=== PATIENT | female | born 1955 | race Caucasian/White ===

== ENCOUNTER → 2017-10-27 13:50 | Outpatient (CLI) | payer OTHER, SELFPAY ==
[2017-10-27 14:42] LABS: Absolute Lymphocyte Count 1.85 X10^3/ul (0.83-4.51); Absolute Neutrophil Count 2.5 X10^3/uL (2.0-7.7); Basophil# 0.04 X10^3/uL; Basophil% 0.8 % (0-1); Eosinophil# 0.07 X10^3/uL; Eosinophils% 1.5 % (0-5); Hemoglobin 12.8 g/dl (12.0-15.0); Lymphocyte # 1.85 X10^3/ul (4.0); Lymphocyte % 38.7 % (19-41); Mean Corp Hgb Conc 32.8 g/gl (32-36); Mean Corpuscular Hgb 30.5 pg (27.0-32.0); Mean Corpuscular Volume 93.1 fL (81-99); Mean Platelet Vol. 9.8 fl (6.2-12.0); Monocyte# 0.28 X10^3/uL; Monocyte% 5.9 % (0-10); Neutrophil # 2.54 X10^3/uL (2.7-7.7); Neutrophil % 53.1 % (47-70); Platelet Count 226 K/mm3 (150-450); RBC Distribution Width CV 13.3 % (11.6-14.6); RBC Distribution Width SD 45.3 fl (35.1-43.9); Red Blood Count 4.19 M/mm3 (4.2-5.4); White Blood Count 4.8 K/mm3 (4.4-11.0)
[2017-10-27 14:43] LABS: POSITIVE COUNT NO; POSITIVE DIFFERENTIAL NO; POSITIVE MORPHOLOGY NO
[2017-10-27 15:02] LABS: Anion Gap 9 (5-15); BUN 20 mg/dL (7-18); BUN/Creat Ratio 22.4 RATIO (10-20); Calcium,Total 8.7 mg/dL (8.5-10.1); Chloride 105 mmol/L (98-107); Creatinine, Serum 0.89 mg/dL (0.55-1.02); EST Glomerular Filtration Rate 68 mL/min (>60); Est Glom Filt Rate - Afr Amer 83 mL/min (>60); Glucose 104 mg/dL (74-106); Potassium 3.8 mmol/L (3.5-5.1); Sodium Level 140 mmol/L (136-145)
== END ==
PROVIDERS: Family Provider Family Medicine; PCP Family Medicine; Visit Provider Physician Assistant Surgical
DX: Z01.818 Encounter for other preprocedural examination (principal)
CPT/HCPCS: 36415; 80048; 85025

== ENCOUNTER → 2020-02-27 | Outpatient (CLI) | payer OTHER, SELFPAY ==
--- NOTE | 2020-02-27 11:53 | BI_ITS ---
MAMMOGRAPHY - BILATERAL SCREENING 3-D TOMOSYNTHESIS REASON FOR EXAM: Female, 64 years old. Routine screening PERTINENT HISTORY: NO FM HX -- COMPS FROM [facility] 2017 and amp; 2015. TECHNIQUE: 2-D mammograms and 3-D Tomosynthesis of the breast (s) were performed. CAD was performed. COMPARISON: 2017 FINDINGS: The breast composition is composed of scattered fibroglandular density. Scattered benign calcifications are seen. No dense spiculated masses or suspicious microcalcifications are identified. No architectural distortion is identified. There is no skin thickening or retraction. There has been no significant change since the prior study. BI/SCREEN MAMM (CAD) W/ROBLES BILAT IMPRESSION: No mammographic signs of malignancy. Routine yearly mammograms recommended. ASSESSMENT CATEGORY: BIRADS Category 1: Negative. A letter regarding these results will be sent to the patient by the facility within 30 days. FOLLOW UP RECOMMENDATION: Yearly follow up mammogram recommended. (A) Approximately 10% of breast cancers are not detected by mammography. A normal mammogram should not delay biopsy of a clinically suspicious abnormality. Electronically Signed: Oni Heredia MD at 13:31 EDT , Service support ,
== END | disposition home or self-care (01) ==
LOC: OPBI 11:50
PROVIDERS: PCP Family Medicine; Referring Provider Family Medicine; Visit Provider Family Medicine
DX: Z12.31 Encounter for screening mammogram for malignant neoplasm of breast (principal)
CPT/HCPCS: 77063; 77067

== ENCOUNTER → 2020-05-18 14:30 | Outpatient (CLI) | payer OTHER, SELFPAY ==
[2020-05-17 13:02] LABS: Absolute Lymphocyte Count 2.56 X10^3/uL (0.83-4.51); Absolute Neutrophil Count 3.2 X10^3/uL (2.0-7.7); Basophil# 0.05 X10^3/uL; Basophil% 0.8 % (0-1); Eosinophil# 0.05 X10^3/uL; Eosinophils% 0.8 % (0-5); Hematocrit 40.6 % (37-47); Hemoglobin 13.2 g/dL (12.0-15.0); Lymphocyte # 2.56 X10^3/ul (4.0); Lymphocyte % 40.5 % (19-41); Mean Corp Hgb Conc 32.5 g/dL (32-36); Mean Corpuscular Hgb 30.3 pg (27.0-32.0); Mean Corpuscular Volume 93.3 fL (81-99); Mean Platelet Vol. 10.2 fl (6.2-12.0); Monocyte# 0.46 X10^3/uL; Monocyte% 7.3 % (0-10); NRBC Flagged by Analyzer 0 % (0-5); Neutrophil # 3.19 X10^3/uL (2.7-7.7); Neutrophil % 50.4 % (47-70); Platelet Count 281 K/mm3 (150-450); RBC Distribution Width CV 13.2 % (11.6-14.6); RBC Distribution Width SD 45.2 fl (35.1-43.9); Red Blood Count 4.35 M/mm3 (4.2-5.4); White Blood Count 6.3 K/mm3 (4.4-11.0)
[2020-05-17 13:29] LABS: Anion Gap 7 (5-15); BUN 17 mg/dL (7-18); BUN/Creat Ratio 21.4 RATIO (10-20); Chloride 104 mmol/L (98-107); Creatinine, Serum 0.79 mg/dL (0.55-1.02); EST Glomerular Filtration Rate 78 mL/min (>60); Est Glom Filt Rate - Afr Amer 94 mL/min (>60); Glucose 88 mg/dL (74-106); Potassium 4.1 mmol/L (3.5-5.1); Sodium Level 137 mmol/L (136-145)
== END ==
PROVIDERS: PCP Family Medicine; Referring Provider Physician Assistant Surgical; Visit Provider Physician Assistant Surgical
DX: Z01.810 Encounter for preprocedural cardiovascular examination (principal); Z01.812 Encounter for preprocedural laboratory examination; Z20.828 Contact with and (suspected) exposure to other viral communicable diseases
CPT/HCPCS: 36415; 80048; 85025; 87635; 93005; C9803; U0003

== ENCOUNTER → 2021-06-14 14:32 | Outpatient (CLI) | payer OTHER, SELFPAY ==
--- NOTE | 2021-06-14 14:41 | BI_ITS ---
MAMMOGRAPHY - BILATERAL SCREENING REASON FOR EXAM: Female, 65 years old. Routine annual screening examination. PERTINENT HISTORY: Non-contributory. TECHNIQUE: Digital bilateral breast robles (3D mammographic acquisition) in the CC and MLO projections. 2-D mediolateral oblique (MLO) and craniocaudad (CC) views of both breasts were obtained. CAD: Full Field Digital Mammography with Computer Added Detection was performed. COMPARISON: Comparison is made with prior study done 02/27/2020. FINDINGS: Breast Composition: There are scattered areas of fibroglandular density. There are no dominant masses or suspicious calcifications. No other significant abnormalities are identified. There has been no significant change since the prior study. BI/SCRN MAMM (CAD)W/ROBLES BILAT IMPRESSION: Stable bilateral screening mammogram. Yearly follow-up mammogram recommended. (A) ASSESSMENT CATEGORY: BIRADS Category 1: Negative. A letter regarding these results will be sent to the patient by the facility within 30 days. Approximately 10% of breast cancers are not detected by mammography. A normal mammogram should not delay biopsy of a clinically suspicious abnormality. [id number] Electronically Signed: Logan Goodrich MD at 8:42 EST , Service support ,
== END ==
PROVIDERS: PCP Family Medicine; Referring Provider Family Medicine; Visit Provider Family Medicine
DX: Z12.31 Encounter for screening mammogram for malignant neoplasm of breast (principal)
CPT/HCPCS: 77063; 77067

== ENCOUNTER → 2021-07-10 12:33 | Outpatient (CLI) | payer OTHER, SELFPAY ==
--- NOTE | 2021-07-10 12:40 | EKG12_ITS ---
Test Reason : PREOP Blood Pressure : / mmHG Vent. Rate : 076 BPM Atrial Rate : 076 BPM P-R Int : 144 ms QRS Dur : 124 ms QT Int : 408 ms P-R-T Axes : 056 040 088 degrees QTc Int : 459 ms Normal sinus rhythm Left bundle branch block Abnormal ECG Confirmed by MAIA GUTHRIE, ADALID ([id number]), state editor TRUDI OWENS ([id number]) on 07/11/2021 9:01:37 AM Referred By: Shay Olivares Confirmed By:ADALID CARVALHO MD
--- NOTE | 2021-07-10 12:51 | CT_ITS ---
STUDY: CT Lower Extremity W/O Contrast Injection 07/10/2021 2:27 PM REASON FOR EXAM: Female, 65 years old. POST TRAUMATIC OSTEOARTHRITIS Individualized dose optimization techniques were used for this CT. TECHNIQUE: POST TRAUMATIC OSTEOARTHRITIS TAI protocol COMPARISON: No priors for comparison. FINDINGS: A rony was placed along the lateral aspect of the patient''s lower extremity. CT scans were obtained over the hip, knee, and ankle, separately. IMPRESSION: The images will be utilized by the surgical prosthesis investment associate for measurement and planning purposes.. Electronically Signed: John Bergman MD at 14:28 EST , Service support , CT/Extremity Lower without Contra
== END ==
PROVIDERS: PCP Family Medicine; Referring Provider Orthopaedic Surgery; Visit Provider Orthopaedic Surgery
DX: Z01.810 Encounter for preprocedural cardiovascular examination (principal); M17.32 Unilateral post-traumatic osteoarthritis, left knee
CPT/HCPCS: 73700; 93005

== ENCOUNTER 2021-07-19 11:50 | Outpatient (CLI) | payer OTHER, SELFPAY | END 2021-07-19 23:59 | disposition short-term general hospital (02) | PROVIDERS: PCP Family Medicine; Referring Provider Physician Assistant; Visit Provider Physician Assistant | DX: Z11.59 Encounter for screening for other viral diseases (principal) | CPT/HCPCS: 87635; C9803; U0003; U0005 ==

== ENCOUNTER 2021-07-24 15:44 | Outpatient (CLI) | payer OTHER, SELFPAY ==
--- NOTE | 2021-07-24 08:30 | KNEE_PTH ---
PATIENT: MILAN CANO LOC: [facility] U#:[id number] AGE/SX: 65/F ROOM: RE07/24/[address]: Dr. Shay Olivares DO : 1955 BED: DIS: 07/24/2021 SPEC #: [id number] RECD: 07/24/21 15:09 STATUS: KAZ REQ #: [id number] KEHINDE: 07/24/21 08:[address]: Shay Olivares DEPT: SURGICAL PATHOLOGY RECD BY: Jacquie Perea ENTERED: 07/25/21 07:28 SP TYPE: TOTAL KNEE OTHR DR: Dr. Nathan Naranjo MD [facility] Tissues: Knee, NOS Procedures: Decalcification bone/plaque Surgery Specimen Level IV HEADER OPERATION: Robotic assisted left total knee arthroplasty PRE-OP DIAGNOSIS: Posttraumatic osteoarthritis left knee TISSUE SUBMITTED: Bone and soft tissue left knee MICROSCOPIC DIAGNOSIS Bone and soft tissue, left knee, total knee replacement/resection: Pieces of bone with degenerative osteoarthritic changes. Fibroadipose tissue, fibroconnective tissue and reactive synovial tissue. ELINOR:nichole 07/31/2021 MICROSCOPIC DESCRIPTION Slides are reviewed. GROSS DESCRIPTION Received is one container designated bone and soft tissue left knee. The specimen consists of multiple fragments of mathur-yellow bone measuring in aggregate 13.5 x 9 x 2 cm. Also in the specimen container are multiple fragments of yellow-white soft tissue measuring in aggregate 9 x 8.5 x 2 cm. A number of bony fragments contain articular surfaces consistent with tibial plateau and femoral condyle and displaying prominent osteophyte formation, eburnation, and bone erosion. Precision Jig Grinder sections are submitted in two cassettes as follows: 1 - soft tissue, 2 - bone after decalcification. / AM:nichole 07/25/2021 :5 [facility]: [id number], [id number]
== END 2021-07-24 23:59 | disposition short-term general hospital (02) ==
LOC: LABSPEC 15:45
PROVIDERS: PCP Family Medicine; Referring Provider Orthopaedic Surgery; Visit Provider Orthopaedic Surgery
DX: M17.32 Unilateral post-traumatic osteoarthritis, left knee (principal)
CPT/HCPCS: 88305; 88311

== ENCOUNTER → 2023-02-23 | Outpatient (CLI) | payer BC, MEDICARE, SELFPAY ==
--- NOTE | 2023-02-23 08:07 | BI_ITS ---
MAMMOGRAPHY - BILATERAL SCREENING REASON FOR EXAM: Female, 67 years old. Routine annual screening examination. PERTINENT HISTORY: Non-contributory. TECHNIQUE: Digital bilateral breast robles (3D mammographic acquisition) in the CC and MLO projections. 2-D mediolateral oblique (MLO) and craniocaudad (CC) views of both breasts were obtained. CAD: Full Field Digital Mammography with Computer Added Detection was performed. COMPARISON: Comparison is made with prior study dated June 14, 2021 and February 27, 2020. FINDINGS: Breast Composition: There are scattered areas of fibroglandular density. There are no dominant masses or suspicious calcifications. No other significant abnormalities are identified. There has been no significant change since the prior study. BI/SCRN MAMM (CAD)W/ROBLES BILAT IMPRESSION: Stable bilateral screening mammogram. Yearly follow-up mammogram recommended. (A) ASSESSMENT CATEGORY: BIRADS Category 1: Negative. A letter regarding these results will be sent to the patient by the facility within 30 days. Approximately 10% of breast cancers are not detected by mammography. A normal mammogram should not delay biopsy of a clinically suspicious abnormality. [id number] Electronically Signed: Logan Goodrich MD at 10:01 EDT ,
== END | disposition home or self-care (01) ==
PROVIDERS: PCP Family Medicine; Referring Provider Family Medicine; Visit Provider Family Medicine
DX: Z12.31 Encounter for screening mammogram for malignant neoplasm of breast (principal)
CPT/HCPCS: 77063; 77067

== ENCOUNTER → 2024-04-05 | Outpatient (CLI) | payer MEDICARE, SELFPAY ==
--- NOTE | 2024-04-05 10:47 | BI_ITS ---
MAMMOGRAPHY - BILATERAL SCREENING REASON FOR EXAM: Female, 68 years old. Routine annual screening examination. PERTINENT HISTORY: Non-contributory. TECHNIQUE: Digital bilateral breast robles (3D mammographic acquisition) in the CC and MLO projections. 2-D mediolateral oblique (MLO) and craniocaudad (CC) views of both breasts were obtained. CAD: Full Field Digital Mammography with Computer Added Detection was performed. COMPARISON: Comparison is made with prior study dated February 23, 2023 and June 14, 2021. FINDINGS: Breast Composition: There are scattered areas of fibroglandular density. There are no dominant masses or suspicious calcifications. No other significant abnormalities are identified. There has been no significant change since the prior study. BI/SCRN MAMM (CAD)W/ROBLES BILAT IMPRESSION: Stable bilateral screening mammogram. Yearly follow-up mammogram recommended. (A) ASSESSMENT CATEGORY: BIRADS Category 1: Negative. A letter regarding these results will be sent to the patient by the facility within 30 days. Approximately 10% of breast cancers are not detected by mammography. A normal mammogram should not delay biopsy of a clinically suspicious abnormality. [id number] Electronically Signed: Logan Goodrich MD at 11:30 EDT ,
== END | disposition home or self-care (01) ==
LOC: OPBI 10:45
PROVIDERS: PCP Family Medicine; Referring Provider Family Medicine; Visit Provider Family Medicine
DX: Z12.31 Encounter for screening mammogram for malignant neoplasm of breast (principal)
CPT/HCPCS: 77063; 77067

== ENCOUNTER 2025-03-02 09:36 | Outpatient (CLI) | payer MEDICARE, SELFPAY | END 2025-03-02 23:59 | disposition home or self-care (01) | LOC: LABSPEC 09:36 | PROVIDERS: PCP Family Medicine; Referring Provider Surgery; Visit Provider Surgery | DX: L82.1 Other seborrheic keratosis (principal); D22.61 Melanocytic nevi of right upper limb, including shoulder | CPT/HCPCS: 88305; 88342 ==

== ENCOUNTER 2025-04-03 02:12 | Emergency (ER) | payer MEDICARE, SELFPAY ==
[2025-04-03 02:13] VITALS: BP 165/83; PULSE 96; RESP 18; TEMP 36.6; O2SAT 100; BMI 25.5
--- NOTE | 2025-04-03 02:37 | EKG12_ITS ---
Test Reason : CP Blood Pressure : */* mmHG Vent. Rate : 96 BPM Atrial Rate : 96 BPM P-R Int : 142 ms QRS Dur : 120 ms QT Int : 360 ms P-R-T Axes : 83 80 251 degrees QTcB Int : 454 ms Normal sinus rhythm Incomplete left bundle branch block ST & T wave abnormality, consider inferolateral ischemia Abnormal ECG Confirmed by MAIA GUTHRIE, ADALID ([id number]), business editor DUNIA CUNHA ([id number]) on 04/04/2025 7:25:51 AM Referred By: MARKUS Confirmed By: ADALID CARVALHO MD
--- NOTE | 2025-04-03 02:38 | EDS_ITS ---
HPI History of Present Illness Chief Complaint: Chest Pain Informant: patient Onset/Context/Timing Onset: Today (Approximately 45 minutes prior to arrival) Activity at onset: sudden Timing: Continuous Quality: Positive for Aching Location: Left Parasternal Worsened By: Breathing Relieved By: Nothing Associated Symptoms: Positive for Dyspnea and Cough; Negative for Nausea, Vomiting, Diaphoresis, Fever, Lightheadedness, Acid Reflux or Palpitations Narrative Narrative: Patient presents with chest pain that began approximately 45 minutes prior to arrival. Patient states it woke her up out of her sleep. Patient states it is over the left parasternal area. Patient describes it as aching. Patient states it is worse when she takes deep breath. Patient states nothing seems to help with it. Patient admits to some shortness of breath and cough. Patient denies any fevers or chills. Patient denies any nausea or vomiting. Patient denies any palpitations. Patient denies any lightheadedness or dizziness. CVD Risk Factors: Negative for Hypertension, Diabetes, Hypercholesterolemia, Family History 1' </=55 or Smoking PE Risk Factors: Negative for Recent Travel/Surgery, Recent Immobilization, Prior DVT or PE, Cancer or OCP + Smoking + >/=35 PFSH PFSH Medical History no medical history no medical history Home Medications ?Medication ?Instructions ?Recorded ?Last Taken ?Type No Known/Unobtainable [No Known 7 Unknown History Home Medications] Allergy/AdvReac Type Severity Reaction Status Date / Time No Known Allergies Allergy Verified 04/03/25 02:13 Family History no significant family his Surgical History History of knee replacement History of hip replacement Social History Smoking Status: Never smoker ROS ROS ED Constitutional Constitutional ED: Denies chills or fever(s) Eyes Eyes: Denies blurry vision or change in vision ENT ENT ED: Denies rhinorrhea or sore throat Cardiovascular Cardiovascular: Reports as per HPI and chest pain; Denies palpitations Respiratory/Chest Respiratory/Chest: Reports cough and dyspnea Gastrointestinal Gastrointestinal: Denies nausea or vomiting Genitourinary Genitourinary ED: Denies dysuria or hematuria Musculoskeletal Musculoskeletal: Reports back pain; Denies neck pain Integumentary Denies abscess or rash Neurologic Neurologic: Denies headache(s) or weakness Allergic/Immunologic Allergic/Immunologic ED: Denies mouth swelling or urticaria EXAM Physical Exam Const Vital Signs: 04/03/25 02:13 04/03/25 02:13 04/03/25 02:49 Temperature 98 F Temperature Source Oral Pulse Rate 96 Respiratory Rate 18 Respiratory Effort Normal Blood Pressure 165/83 H Blood Pressure Mean 110 Pulse Ox 100 Oxygen Delivery Method Room Air Room Air 04/03/25 02:52 04/03/25 03:00 04/03/25 04:00 Temperature Temperature Source Pulse Rate 86 84 87 Respiratory Rate 18 16 Respiratory Effort Blood Pressure 165/83 H 113/73 143/73 H Blood Pressure Mean 86 96 Pulse Ox 97 100 Oxygen Delivery Method Room Air Room Air 04/03/25 05:00 Temperature Temperature Source Pulse Rate 74 Respiratory Rate 16 Respiratory Effort Blood Pressure 126/73 H Blood Pressure Mean 90 Pulse Ox 96 Oxygen Delivery Method Room Air Positive well nourished and well developed Constitutional Narrative: BMI is 25.6. General Appearance ED: well developed and NAD HEENT Reports moist mucous membranes Neck supple and no JVD Resp normal respiratory effort and clear to auscultation bilaterally Cardio regular rate and regular rhythm GI soft to palpation, non-tender and non-distended Extremity normal to inspection Neuro oriented x3, CN's II-XII intact bilaterally and no sensory deficits noted Sensorium / Orientation: awake and alert Motor Exam: strength 5/5 throughout Psych mental status grossly normal Heart Score History: Slightly/Non-Suspicious ECG: Nonspecific Repolarization Age: >/= 65 years Risk Factors: No Risk Factors Score: 3 MDM MDM MDM Narrative Medical decision making narrative: Differential diagnosis includes cardiac dysrhythmia, cardiac ischemia, pneumonia, bronchitis, electrolyte abnormality, gastroesophageal reflux disease, pulmonary embolism, and anxiety. EKG will be obtained to assess for cardiac dysrhythmia and cardiac ischemia. Chest x-ray will be obtained to assess for pneumonia and bronchitis. CBC will be obtained to assess for leukocytosis and anemia. Basic metabolic profile will be obtained to assess for electrolyte abnormality and renal function. D-dimer will be obtained to assess for pulmonary embolism. High-sensitivity troponin will be obtained to assess for cardiac ischemia. 2-hour repeat high-sensitivity troponin will be obtained to assess for ongoing cardiac ischemia. Lab Data Attestation: I reviewed the patient's lab results. Lab results narrative: CBC was reviewed. There is a slight leukocytosis of 11.6. The remainder is within normal limits. Basic metabolic profile was reviewed and was within normal limits. D-dimer was reviewed and was normal at 0.34. Initial high- sensitivity troponin was reviewed and was normal at 9. 2-hour repeat high- sensitivity troponin was reviewed and was normal at 10. Labs: Laboratory Results - last 24 hr 04/03/25 04/03/25 02:24 04:24 WBC 11.6 H RBC 4.52 Hgb 13.7 Hct 40.2 MCV 88.9 MCH 30.3 MCHC 34.1 RDW Std Deviation 43.2 RDW Coeff of Sade 13.2 Plt Count 266 MPV 9.8 Immature Gran % (Auto) 0.300 Neut % (Auto) 65.9 Lymph % (Auto) 24.0 [place] % (Auto) 8.4 Eos % (Auto) 0.7 Baso % (Auto) 0.7 Absolute Neuts (auto) 7.6 Absolute Lymphs (auto) 2.78 Nucleated RBC % 0 D-Dimer Quant (PE/DVT) 0.34 Sodium 136 Potassium 4.2 Chloride 99 Carbon Dioxide 24.4 Anion Gap 13 BUN 11 Creatinine 0.75 Estim Creat Clear Calc 68.36 Est GFR (MDRD) Non-Af 87 BUN/Creatinine Ratio 14.5 Glucose 115 H Calcium 9.7 Troponin T High Sens 9 Troponin T Hi Sens 2 Hr 10 Radiography Chest X-Ray - ED: 1 View, Read by ED Physician, Read by Radiologist and No Acute Disease Diagnostic Testing: Clinical Impression(s) from Imaging Studies Chest X-Ray 04/03/25 02:50 IMPRESSION: Chronic deformities of the right ribs. No evidence for acute abnormality. Reading Location: [place] [id number] Portable 1 view chest x-ray was obtained. On my independent interpretation, lung zendejas are clear. There is normal cardiac silhouette. Bony thorax is normal. There is no acute process noted. Radiologist also interpreted the x- ray and agrees. EKG Initial EKG: Attestation: I personally reviewed and interpreted this EKG as follows: Interpretation: Sinus Rhythm (96), LBBB (Incomplete) and Non-Specific ST Changes Comments: EKG was obtained. On my independent interpretation, showed a normal sinus rhythm at 96. RI interval was normal at 142 ms. QRS interval was borderline at 120 ms. QTc interval was normal at 454 ms. [place] was normal. There are nonspecific ST-T wave changes noted. Prior EKG tracings: available for review Prior: Unchanged (07/10/2021) Treatment and Re-Evaluation :: Patient was given aspirin and sublingual nitroglycerin. Patient had no further pain on reevaluation. Patient was advised of her findings. Patient has a HEART score of 3. Patient was advised that this is low risk for acute cardiac event. Patient was instructed to follow-up with her primary care physician in 5 to 7 days for reevaluation. Patient was instructed to return if worse in any way. Patient understood and was agreeable with the plan. All questions were answered. Discharge Plan Triage Chief Complaint: Chest Pain ED Provider: Mohan Guadarrama Dx/Rx/DC Orders Clinical Impression: Chest pain, Elevated blood pressure reading Instructions: ED Chest Pain, Uncertain Cause Prescriptions: No Action No Known Home Medications Primary Care Provider: Debi Alexander Referrals: Debi Alexander NP-C [Primary Care Provider, Family Practice] - 3-5 Days Nathan Naranjo MD [Non-Staff, [facility]] - 3-5 Days Print Language: Burundian Disposition Disposition: Home, Self Care
--- OUTSIDE RECORDS SUMMARY | 2025-04-03 02:43 | XMS RPT_ITS | CCD ---
Author Organization [facility] Care Team Providers Care Environmental Auditor Name Role Phone Gretel Turner MD Primary Care Provider Gretel Turner MD Primary Care Provider Catherine BENEFITS CLERK.Debi PARHAM Unavailable Arie BENEFITS CLERKFranko RODRIGUEZ Unavailable GRETEL TURNER Primary Care Unavailable DEBI ALEXANDER Attending Unavailable DEBI ALEXANDER Attending Unavailable GRETEL TURNER Primary Care Unavailable GRETEL TURNER Primary Care Unavailable DEBI ALEXANDER Referring Unavailable Dr. Gretel Turner MD Primary Care Provider Dr. Jerel Estrada MD Attending Provider Dr. Jerel Estrada MD Referring Provider Gretel Turner Primary Care Unavailable Gretel Turner Attending Unavailable Gretel Turner Referring Unavailable Jerel Dozier Attending Unavailable Sean VSJerel Kam Referring Unavailable Gretel Turner Primary Care Unavailable Allergies Allergy Classification Reported Allergen(s) Allergy Type Date of Onset Reaction(s) Facility (15 sources) Grass pollen; Translations: [GRASS POLLEN] Propensity to adverse reactions 06-19-2005 [facility] Work Phone: (15 sources) House dust mite; Translations: [DUST MITES] Propensity to adverse reactions 06-19-2005 [facility] Work Phone: Medications Current Medications Medication Drug Class(es) Dates Sig (Normalized) Sig (Original) chol/gl/ser/RNA/phen /prg/hb150 (SHARPER FOCUS ORAL) (6 sources) chol/gl/ser/RNA/ phen/ prg/hb150 (SHARPER FOCUS ORAL) Take by mouth once daily. Active multivitamin/iron/fo lic acid (CENTRUM WOMEN ORAL) (6 sources) multivitamin/iro n/fol ic acid (CENTRUM WOMEN ORAL) Take by mouth once daily. Active perflutren lipid microspheres 1.3 mL in NaCl (PF) 0.9% 10 mL injection (DEFINITY) (7 sources) Start: 01-26-2023 End: 04-26-2024 perflutren lipid microspheres 1.3 mL in NaCl (PF) 0.9% 10 mL injection (DEFINITY) semaglutide, weight loss, (WEGOVY) 0.25 mg/0.5 mL pen injector (2 sources) Start: 06-23-2024 End: 07-23-2024 semaglutide, weight loss, (WEGOVY) 0.25 mg/0.5 mL pen injector Indications: Elevated glucose , Class 1 obesity with body mass index (BMI) of 33.0 to 33.9 in adult, unspecified obesity type, unspecified whether serious comorbidity present Inject 0.5 mL subcutaneously one time a week. 2 mL 06/23/2024 07/23/2024 Active semaglutide, weight loss, (WEGOVY) 1.7 mg/0.75 mL pen injector (1 source) Start: 09-26-2024 End: 10-26-2024 semaglutide, weight loss, (WEGOVY) 1.7 mg/0.75 mL pen injector Indications: Class 1 obesity with body mass index (BMI) of 31.0 to 31.9 in adult, unspecified obesity type, unspecified whether serious comorbidity present Inject 1.7 mg subcutaneously one time a week. 3 mL 09/26/2024 10/26/2024 Active 125 ml sodium chloride 9 mg/ml prefilled syringe (7 sources) Start: 01-26-2023 End: 04-26-2024 sodium chloride 0.9 % (flush) 10 mL (BD POSIFLUSH) Completed/Discontinued Medications Medication Drug Class(es) Dates Sig (Normalized) Sig (Original) semaglutide, weight loss, (WEGOVY) 0.5 mg/0.5 mL pen injector (2 sources) Start: 07-29-2024 End: 08-26-2024 semaglutide, weight loss, (WEGOVY) 0.5 mg/0.5 mL pen injector Indications: Class 1 obesity with body mass index (BMI) of 33.0 to 33.9 in adult, unspecified obesity type, unspecified whether serious comorbidity present , Elevated glucose Inject 0.5 mL subcutaneously one time a week. 2 mL 07/29/2024 08/26/2024 Discontinued Start: 07-29-2024 End: 08-28-2024 semaglutide, weight loss, (W EGOVY) 0.5 mg/0.5 mL pen injector Indications: Class 1 obesity with body mass index (BMI) of 33.0 to 33.9 in adult, unspecified obesity type, unspecified whether serious comorbidity present , Elevated glucose Inject 0.5 mL subcutaneously one time a week. 2 mL 07/29/2024 08/28/2024 Active semaglutide, weight loss, (WEGOVY) 1 mg/0.5 mL pen injector (2 sources) Start: 08-26-2024 End: 09-26-2024 semaglutide, weight loss, (WEGOVY) 1 mg/0.5 mL pen injector Indications: Class 1 obesity with body mass index (BMI) of 33.0 to 33.9 in adult, unspecified obesity type, unspecified whether serious comorbidity present , Elevated glucose Inject 0.5 mL subcutaneously one time a week. 4 Each 3 08/26/2024 09/26/2024 Discontinued Start: 08-26-2024 semaglutide, w eight loss, (WEGOVY) 1 mg/0.5 mL pen injector Indications: Class 1 obesity with body mass index (BMI) of 33.0 to 33.9 in adult, unspecified obesity type, unspecified whether serious comorbidity present , Elevated glucose Inject 0.5 mL subcutaneously one time a week. 4 Each 3 08/26/2024 Active Problems Active Problems Problem Classification Problem Date Documented Da te Episodic/Chronic Conduction disorders (14 sources) Left bundle branch block; Translations: [Left bundle-branch block, unspecified] Onset: 04-22-2016 04-22-2016 Chronic Disorders of lipid metabolism (2 sources) Mixed hyperlipidemia; Translations: [Mixed hyperlipidemia] Onset: 06-20-2024 06-13-2024 Chronic Heart valve disorders (17 sources) Mitral valve prolapse; Translations: [Nonrheumatic mitral (valve) prolapse] Onset: 02-24-2011 02-24-2011 Chronic Other nutritional; endocrine; and metabolic disorders (5 sources) Obesity; Translations: [Class 1 obesity with body mass index (BMI) of 33.0 to 33.9 in adult, unspecified obesity type, unspecified whether serious comorbidity present] 06-13-2024 Chronic Other nutritional; endocrine; and metabolic disorders (1 source) Body mass index (BMI) 31.0-31.9, adult; Translations: [Class 1 obesity with body mass index (BMI) of 31.0 to 31.9 in adult, unspecified obesity type, unspecified whether serious comorbidity present] Onset: 09-26-2024 Chronic Other nutritional; endocrine; and metabolic disorders (1 source) Body mass index (BMI) 33.0-33.9, adult; Translations: [Class 1 obesity with body mass index (BMI) of 33.0 to 33.9 in adult, unspecified obesity type, unspecified whether serious comorbidity present] Onset: 06-20-2024 Chronic Other skin disorders (1 source) Disorder of the skin and subcutaneous tissue, unspecified; Translations: [Disorder of the skin and subcutaneous tissue, unspecified] Onset: 03-16-2025 Episodic Residual codes; unclassified (1 source) Menopause present; Translations: [Asymptomatic menopausal state] 01-26-2023 Episodic Unclassified (1 source) Class 1 obesity with body mass index (BMI) of 31.0 to 31.9 in adult, unspecified obesity type, unspecified whether serious comorbidity present; Translations: [Class 1 obesity with body mass index (BMI) of 31.0 to 31.9 in adult, unspecified obesity type, unspecified whether serious comorbidity present] Onset: 09-26-2024 Unclassified (1 source) Class 1 obesity with body mass index (BMI) of 33.0 to 33.9 in adult, unspecified obesity type, unspecified whether serious comorbidity present; Translations: [Class 1 obesity with body mass index (BMI) of 33.0 to 33.9 in adult, unspecified obesity type, unspecified whether serious comorbidity present] Onset: 06-20-2024 Past or Other Problems Problem Classification Problem Date Documented Da te Episodic/Chronic Diabetes mellitus without complication (6 sources) Increased glucose level; Translations: [Other abnormal glucose] Onset: 06-20-2024 01-26-2023 Episodic Hemorrhoids (14 sources) Internal hemorrhoids; Translations: [Other hemorrhoids] Onset: 12-03-2011 12-03-2011 Episodic Other and unspecified benign neoplasm (14 sources) Benign neoplasm of rectum and anal canal; Translations: [Benign neoplasm of rectum] Onset: 12-03-2011 12-03-2011 Episodic Other screening for suspected conditions (not mental disorders or infectious disease) (20 sources) Patient encounter status; Translations: [Encounter for screening mammogram for malignant neoplasm of breast] Onset: 12-03-2011 Episodic Results Test Name Value Interpretation Reference Range Facility Immunohistochemical Stainson 03-02-2025 Immunohistochemical Stains Patient Age/Sex Location Account Attending Physician MILAN ALVARADO 69/F LABSPEC [id number] Jerel Estrada MD Specimen: [id number] Received: 03/02/25 Status: KAZ Abad Num: [id number] Spec Type: Lesion Subm Dr: Jerel EstradaC HEADER OPERATION: Skin lesion removal PRE-OP DIAGNOSIS: Right axillary cautery amputation, right scapula vertical elliptical excision with chromic suture at superior ellipse TISSUE SUBMITTED: A- Right axillary nevus, B- Right scapula nevus MICROSCOPIC DIAGNOSIS A. Skin, axillary, right excision Seborrheic keratosis B. Skin, scapula, right, excision: Focal junctional melanocytic nevus (See note) Areas of increased basal pigmentation Note: The HMB-45 highlights the junctional cells, supporting the diagnosis. The slides are reviewed with Aamir Maldonado MD in consultation. MICROSCOPIC DESCRIPTION Slides are reviewed. GROSS DESCRIPTION Received in 2 formalin containers labeled with the patient's name and date of . Designated as: A. #1 is a 0.5 x 0.4 x 0.2 cm mathur to light brown, firm portion of skin devoid of orientation. The resection margin is inked green. The specimen is bisected and entirely submitted in 1 cassette. B. #2 is a 2.4 x 1.1 cm mathur skin ellipse excised to a maximum depth of 0.8 cm and with orientation as follows: Single suture: designated as superior, redesignated as 12:00 per the grossing PA. There is a 0.6 x 0.6 cm hypopigmented area located the following distances from the margins: 12:00: 0.8 cm 3:00: 0.3 cm 6:00: 0.8 cm9:00: 0.3 cmDeep: 0.8 cm Ink myers: 12:00 to 3:00: Green3:00 to 6:00: Yellow6:00 to 9:00: Orange9:00 to 12:00: BlueDeep: Black The specimen is serially sectioned from 12:00 to 6:00, and entirely submitted, sequentially in 3 cassettes. Patient Age/Sex Location Account Attending Physician MILAN ALVARADO 69/F LABSPEC [id number] Jeerl Estrada MD [place] 03/02/2025 CPT:30964,18642 Patient Age/Sex Location Account Attending Physician MILAN ALVARADO 69/F LABSPEC [id number] Jerel Estrada MD Signed (signature on file) Dr. Lindy Gil DO 03/24/25 1345 Normal [facility] Comment on above: Performed By: #### P MELANY #### [facility] Laboratory [facility] [place], [place], [address] CNOVon 09-26-2024 [facility]OV [facility] MILAN ALVARADO ([id number]) 1955 F Date Time Provider Department 09/26/24 9:00 AM [facility] During your visit today, we recorded the following information about you: Pulse Respiration Blood pressure Weight 68/minute 16/minute 132/80 86 kg Debi Alexander APRN.CNP 09/26/2024 9:01 AM Addendum Increase Wegovy 1.7 mg weekly Continue to work on lifestyle changes at home Increase protein, veggies, and get some form of exercise. Follow up in 3 months. Dentis: Dr. Rajan Fortune with Dr. Salas on [facility] Debi Alexander APRN.STAFFING ASSOCIATE 09/26/2024 9:37 AM Signed This is a 68 year old female who presents today with: Patient presents with: Follow Up: 3 month follow up HISTORY OF PRESENT ILLNESS: Milan lAvarado is a 68 year old female. Patient presents with: Follow Up: 3 month follow up 3 month follow up In June started on Wegovy. Currently taking 1 mg once weekly. Starting weight was 205 pounds. Today's weight is 189 lbs. Doing well with medication. Has changed eating habits. Trying to eat when she is hungry. Increasing protein. Exercising now that the weather is changing. No side effects to medication. PAST MEDICAL HISTORY: PAST MEDICAL HISTORY Diagnosis Date Head injury, unspecified 2006 Head Injury Unspec, Closed head injury, 3 day stay in [facility]. Mitral valve prolapse Pneumothorax 2006 Rib fractures 2006 Right side Snoring PAST SURGICAL HISTORY Procedure Laterality Date APPENDECTOMY COLONOSCOPY FLX DX W/COLLJ SPEC WHEN PFRMD 12/03/2011 Colonoscopy repeat 5 years COLONOSCOPY FLX DX W/COLLJ SPEC WHEN PFRMD 04/03/2017 Colonoscopy HYSTERECTOMY HX 15 years ago-total hysterectomy KNEE ARTHROSCOPY Right 06/26/2017 Dr. Peterson, [facility]. Torn Lateral Medial Meniscus LIG/TRNSXJ FLP TUBE ABDL/VAG APPR UNI/BI 1996 OPEN REPAIR OF ROTATOR CUFF ACUTE 2003 Right PAST SURGICAL HISTORY OF ORIF left hand PAST SURGICAL HISTORY OF ORIF right ankle PAST SURGICAL HISTORY OF 10/15/12 bilatral foot surgery SALPINGECTOMY Right SEPTOPLASTY/SUBMUCOU S RESECJ W/WO CARTILAGE GRF TOTAL ABDOMINAL HYSTERECT W/WO RMVL TUBE OVARY 2001 ALLERGIES Dust Mites and Grass Pollen MEDICATIONS Current Outpatient Medications Medication Sig semaglutide, weight loss, (WEGOVY) 1 mg/0.5 mL pen injector Inject 0.5 mL subcutaneously one time a week. chol/gl/ser/RNA/phen /prg/hb150 (SHARPER FOCUS ORAL) Take by mouth once daily. multivitamin/iron/fo lic acid (CENTRUM WOMEN ORAL) Take by mouth once daily. No current facility-administere d medications for this visit. FAMILY HISTORY Problem Relation Age of Onset Diabetes Brother Diabetes Mother Heart Brother MVP, SBE Social History Tobacco Use Smoking status: Former Current packs/day: 0.00 Types: Cigarettes Quit date: 07/06/1986 Years since quittin.2 Smokeless tobacco: Never Vaping Use Vaping status: Never Used Substance Use Topics Alcohol use: Yes Comment: occasional Drug use: No REVIEW OF SYSTEMS GENERAL: No weight loss, malaise or fevers/chills HEENT: Negative for frequent or significant headaches, No changes in hearing or vision. NECK: Negative for lumps, goiter, pain and significant neck swelling RESPIRATORY: Negative for cough, hemoptysis, wheezing, dyspnea or shortness of breath CARDIOVASCULAR: Negative for chest pain, leg swelling, orthopnea, or palpitations GI: No nausea, vomiting, or diarrhea/constipatio n. No hematochezia/melena. No heartburn or reflux symptoms. : No history of dysuria, frequency or incontinence MUSCULOSKELETAL: Negative for joint pain or swelling. SKIN: Negative for lesions, rash, and itching ENDOCRINE: Negative for cold or heat intolerance, polyuria, polydipsia and goiter NEURO: No history of headaches, syncope, paralysis, seizures or tremors MOOD: Negative for depression, anxiety, or suicidal ideation. EXAM: BP 132/80 Pulse 68 Resp 16 Wt 86 kg (189 lb 9.5 oz) SpO2 97% BMI 31.21 kg/m? PHYSICAL EXAM: General Appearance: Well appearing, alert, in no acute distress, well-hydrated, well nourished. Skin: Skin color, texture, turgor normal, no suspicious rashes or lesions. Head: Normocephalic, no masses, lesions, tenderness or abnormalities. Eyes: Anicteric sclera. Extraocular movements are intact. Lungs: Lungs clear to auscultation. No wheezing, rhonchi, rales. Heart: RRR without murmur, gallop, or rubs. No ectopy. Extremities: No deformities, edema, skin discoloration, clubbing or cyanosis. Good capillary refill. Peripheral Pulses: Normal, Capillary refill <2secs, strong peripheral pulses, Pulses palpable. Neurologic: Gait normal. Sensation grossly intact. ASSESSMENT/PLAN: 1. Class 1 obesity with body mass index (BMI) of 31.0 to 31.9 in adult, unspecified obesity type, unspecified whether serious comorbidity prese (more content not included)... [facility] C[facility] Tele[facility] ([facility]) MILAN ALVARADO ([id number]) 1955 F Date Time Provider Department 07/29/24 GRETEL TURNER During your visit today, we recorded the following information about you: Carla Willis 07/29/2024 8:19 AM Signed Milan is calling Gretel Turner MD today to request the Wegovy medication is increased to the next dosage: Disp Refills Start End semaglutide, weight loss, (WEGOVY) 0.25 mg/0.5 mL pen injector 2 mL 0 06/23/2024 07/23/2024 Sig: Inject 0.5 mL subcutaneously one time a week. Sent to pharmacy as: semaglutide, weight loss, (WEGOVY) 0.25 mg/0.5 mL pen injector Class: Normal Route: SUBCUTANEOUS Order: [id number] E-Prescribing Status: Receipt confirmed by pharmacy (06/23/2024 2:31 PM EST) Prior authorization: Denied Patient is paying out of pocket. She has one left at this dosage, and will take tomorrow. Please send new prescription to [facility]. Please call the patient. Patient has been identified by name and birthdate. Duration of symptoms: N/A Person calling: self Call patient at: on cell [phone] (home) [phone] (cell) Was an appointment scheduled: No Closing statement: Results or non-symptom based questions: Thank you for calling [facility], your call will be returned within the next business day. Debi Orozco APRN.[facility] 07/29/2024 9:00 AM Signed The following approved medication requests have been transmitted electronically. Requested Prescriptions Signed Prescriptions Disp Refills semaglutide, weight loss, (WEGOVY) 0.5 mg/0.5 mL pen injector 2 mL 0 Sig: Inject 0.5 mL subcutaneously one time a week. Authorizing Provider: DEBI ALEXANDER Patient will need a 3 month follow up in September for a weight check. If he tolerates increased dose, we can increase dosing again in 1 month. Please have him reach out to the office. Debi Alexander APRN.Jim Souza LPN 07/29/2024 9:28 AM Signed Patient notified of Rx, verbalizes understanding of instructions. Pt also made her appt in September. Jim Sherman LPN Allergies As of Date: 07/29/2024 Noted Allergy Reaction DUST MITES 06/19/2005 GRASS POLLEN 06/19/2005 Date Reviewed: 06/13/2024 Reviewed by: Jim Sherman LPN - Fully Assessed Reason for Visit: Medication Question [1478] Cmt: Wegovy Primary Visit Diagnosis:Class 1 obesity with body mass index (BMI) of 33.0 to 33.9 in adult, unspecified obesity type, unspecified whether serious comorbidity present [E66.811, Z68.33] Other Visit Diagnosis:Elevated glucose [R73.09] Order(s):semaglutide , weight loss, (WEGOVY) 0.5 mg/0.5 mL pen injectorInject 0.5 mL subcutaneously one time a week.Disp: 2 mLRfl: 0 Prescriptions as of 07/29/2024 - semaglutide, weight loss, (WEGOVY) 0.5 mg/0.5 mL pen injector Inject 0.5 mL subcutaneously one time a week. - chol/gl/ser/RNA/phen /prg/hb150 (SHARPER FOCUS ORAL) Take by mouth once daily. - multivitamin/iron/fo lic acid (CENTRUM WOMEN ORAL) Take by mouth once daily. Meds Comments as of 08/30/2020: Tylenol PRN in AM August 30, 2020 Marjorie Jones MA Problem List As Of Date 07/29/2024 Noted Resolved Mitral valve prolapse [I34.1] 02/24/2011 Benign neoplasm of rectum and anal canal [D12.8*12/03/2011 Internal hemorrhoids without mention of complic*12/03/2011 Special screening for malignant neoplasms, colo*12/03/2011 LBBB (left bundle branch block) [I44.7] 04/22/2016 Prescriptions ordered this encounter Disp Refills Start End SEMAGLUTIDE (WEIGHT LOSS) 0.5 MG/0.5* 2 mL 0 07/29/2024 08/28/2024 Route: SUBCUTANEOUS Sig: Inject 0.5 mL subcutaneously one time a week. Encounter Status:Closed by JIM SHERMAN on 07/29/24 [facility] Jose [facility]20[facility] MILAN ALVARADO ([id number]) 1955 F Date Time Provider Department 06/28/24 GRETEL TURNER [facility] During your visit today, we recorded the following information about you: Josselyn Rivero MA 06/28/2024 11:12 AM Signed PA completed for Wegovy was denied medicare does not cover any weight loss medication. Patient was notified Josselyn Rivero MA Allergies As of Date: 06/28/2024 Noted Allergy Reaction DUST MITES 06/19/2005 GRASS POLLEN 06/19/2005 Date Reviewed: 06/13/2024 Reviewed by: Jim Sherman LPN - Fully Assessed Reason for Visit: Insurance Authorization [[id number]] Cmt: Wegovy Prescriptions as of 06/28/2024 - semaglutide, weight loss, (WEGOVY) 0.25 mg/0.5 mL pen injector Inject 0.5 mL subcutaneously one time a week. - chol/gl/ser/RNA/phen /prg/hb150 (SHARPER FOCUS ORAL) Take by mouth once daily. - multivitamin/iron/fo lic acid (CENTRUM WOMEN ORAL) Take by mouth once daily. Meds Comments as of 08/30/2020: Tylenol PRN in AM August 30, 2020 Marjorie Jones MA Problem List As Of Date 06/28/2024 Noted Resolved Mitral valve prolapse [I34.1] 02/24/2011 Benign neoplasm of rectum and anal canal [D12.8*12/03/2011 Internal hemorrhoids without mention of complic*12/03/2011 Special screening for malignant neoplasms, colo*12/03/2011 LBBB (left bundle branch block) [I44.7] 04/22/2016 Encounter Status:Closed by JOSSELYN RIVERO on 06/28/24 [facility] Jose 06-23-2024 KIERA Telephone (TC) MILAN ALVARADO ([id number]) 1955 F Date Time Provider Department 06/23/24 DEBI ALEXANDER During your visit today, we recorded the following information about you: Debi Alexander APRN.PRASAD 06/23/2024 2:05 PM Signed Can you please call the patient and let her know that I reviewed her lab results. Thyroid was normal. A1c was 5.4, no signs of diabetes. LDL cholesterol elevated but much improved. I would recommend working on lifestyle changes at home, be mindful of processed foods in the diet, increase lean protein, vegetables, get some form exercise. I know she was interested in trying Wegovy, please let me know if she wants me to send in a prescription to her pharmacy of choice. Debi Alexander APRN.Jim Souza LPN 06/23/2024 2:15 PM Signed Patient notified of results, verbalizes understanding of instructions. Pt would like the RX to go to [facility]. DIONICIO Villalta Ashley, BENEFITS CLERK.STAFFING ASSOCIATE 06/23/2024 2:22 PM Signed The following approved medication requests have been transmitted electronically. Requested Prescriptions Signed Prescriptions Disp Refills semaglutide, weight loss, (WEGOVY) 0.25 mg/0.5 mL pen injector 2 mL 0 Sig: Inject 0.5 mL subcutaneously one time a week. Authorizing Provider: DEBI ALEXANDER APRN.CNP Allergies As of Date: 06/23/2024 Noted Allergy Reaction DUST MITES 06/19/2005 GRASS POLLEN 06/19/2005 Date Reviewed: 06/13/2024 Reviewed by: Jim Sherman LPN - Fully Assessed Reason for Visit: Results [95] Cmt: Labs Primary Visit Diagnosis:Elevated glucose [R73.09] Other Visit Diagnosis:Class 1 obesity with body mass index (BMI) of 33.0 to 33.9 in adult, unspecified obesity type, unspecified whether serious comorbidity present [E66.811, Z68.33] Order(s):semaglutide , weight loss, (WEGOVY) 0.25 mg/0.5 mL pen injectorInject 0.5 mL subcutaneously one time a week.Disp: 2 mLRfl: 0 Prescriptions as of 06/28/2024 - semaglutide, weight loss, (WEGOVY) 0.25 mg/0.5 mL pen injector Inject 0.5 mL subcutaneously one time a week. - chol/gl/ser/RNA/phen /prg/hb150 (SHARPER FOCUS ORAL) Take by mouth once daily. - multivitamin/iron/fo lic acid (CENTRUM WOMEN ORAL) Take by mouth once daily. Meds Comments as of 08/30/2020: Tylenol PRN in AM August 30, 2020 Marjorie Jones MA Problem List As Of Date 06/23/2024 Noted Resolved Mitral valve prolapse [I34.1] 02/24/2011 Benign neoplasm of rectum and anal canal [D12.8*12/03/2011 Internal hemorrhoids without mention of complic*12/03/2011 Special screening for malignant neoplasms, colo*12/03/2011 LBBB (left bundle branch block) [I44.7] 04/22/2016 Prescriptions ordered this encounter Disp Refills Start End SEMAGLUTIDE (WEIGHT LOSS) 0.25 MG/0.* 2 mL 0 06/23/2024 07/23/2024 Route: SUBCUTANEOUS Sig: Inject 0.5 mL subcutaneously one time a week. Encounter Status:Closed by DEBI ALEXANDER on 06/23/24 Normal [facility] Comprehensive metabolic 2000 panelon 06-20-2024 Albumin [Mass/Vol] 4.5 g/dL Normal 3.9-4.9 [facility] Comment on above: Order Comment: Speci men Type: BLOOD SPECIMENOrdering Facility: [facility] Address: [address] [place] [address] Performed By: #### 2 4323-8, 14425-1, 3016-3, 3024-7 ####[facility] LABIA [id number] [place] [address] [place] [Catalytic activity/Vol] 99 U/L Normal 34-123 [facility] Comment on above: Order Comment: Speci men Type: BLOOD SPECIMENOrdering Facility: [facility] Address: [address] [place] [address] Performed By: #### 2 4323-8, 95724-5, 6-3, 302-7 ####[facility] [id number] [place] [address] [place] ALT [Catalytic activity/Vol] 21 U/L Normal 7-38 [facility] Comment on above: Order Comment: Speci men Type: BLOOD SPECIMENOrdering Facility: [facility] Address: [address] [place] [address] Performed By: #### 2 4323-8, 17007-6, 6-3, 302-7 ####[facility] LABIA [id number] [place] [address] [place] Anion gap [Moles/Vol] 12 mmol/L Normal 8-15 [facility] Comment on above: Order Comment: Speci men Type: BLOOD SPECIMENOrdering Facility: [facility] Address: [address] [place], [place] [address] Performed By: #### 2 4323-8, 35583-3, 3015-3, 7 ####[facility] LABCLIA [id number] [place] [id number] [place] AST [Catalytic activity/Vol] 22 U/L Normal 13-35 [facility] Comment on above: Order Comment: Speci men Type: BLOOD SPECIMENOrdering Facility: [facility] Address: [address] [place], [place] [address] Performed By: #### 2 4323-8, 11358-4, 3015-3, 7 ####[facility] LABCLIA [id number] [place] [address] [place] Bilirubin [Mass/Vol] 0.8 mg/dL Normal 0.2-1.3 [facility] Comment on above: Order Comment: Speci men Type: BLOOD SPECIMENOrdering Facility: [facility] Address: [address] [place] [address] Performed By: #### 2 4323-8, 18174-0, 3, 7 ####[facility] LABCLIA [id number] [place] [address] [place] Calcium [Mass/Vol] 9.7 mg/dL Normal 8.5-10.2 [facility] Comment on above: Order Comment: Speci men Type: BLOOD SPECIMENOrdering Facility: [facility] Address: [address] [place], [place] [address] Performed By: #### 2 4323-8, 58923-4, 3015-3, 7 ####[facility] LABCLIA [id number] [place] [id number] [place] Chloride [Moles/Vol] 102 mmol/L Normal 98-107 [facility] Comment on above: Order Comment: Speci men Type: BLOOD SPECIMENOrdering Facility: [facility] Address: [facility] [place] [address] Performed By: #### 2 4323-8, 77383-3, 6-3, 7 ####[facility] LABIA [id number] [address] [address] [place] CO2 [Moles/Vol] 24 mmol/L Normal 22-30 [facility] Comment on above: Order Comment: Speci men Type: BLOOD SPECIMENOrdering Facility: [facility] Address: [address] [place], [place] [address] Performed By: #### 2 4323-8, 40097-0, 3015-3, 7 ####[facility] LABIA [id number] [place] [address] [place] Creatinine [Mass/Vol] 0.77 mg/dL Normal 0.58-0.96 [facility] Comment on above: Order Comment: Speci men Type: BLOOD SPECIMENOrdering Facility: [facility] Address: [address] [place] [address] Performed By: #### 2 4323-8, 55122-4, 3, 7 ####[facility] LABIA [id number] [place] [address] [place] Creatinine and Glomerular filtration rate.predicted panel (S/P/Bld) 85 mL/min/1.73m??? Normal >=60 [facility] Comment on above: Order Comment: Speci men Type: BLOOD SPECIMENOrdering Facility: [facility] Address: [address] [place] [address] Result Comment: Sapna mated Glomerular Filtration Rate (eGFR) is calculated using the 2020 CKD-EPI creatinine equation. This equation utilizes serum creatinine, sex, and age as parameters. The creatinine assay has traceable calibration to isotope dilution-mass spectrometry. Refer to KDIGO guidelines for clinical interpretation. In patients with unstable renal function, e.g. those with acute kidney injury, the eGFR may not accurately reflect actual GFR. Performed By: #### 2 4323-8, 46582-3, 6-3, 3023-7 ####[facility] LABCLIA [id number] [address] [address] [place] Glucose [Mass/Vol] 90 mg/dL Normal 74-99 [facility] Comment on above: Order Comment: Speci men Type: BLOOD SPECIMENOrdering Facility: [facility] Address: [address] [place] [address] Result Comment: The [place] Diabetes Association (ADA) provides guidance for cutoff values for fasting glucose and random glucose. The ADA defines fasting as no caloric intake for at least 8 hours. Fasting plasma glucose results between 100 to 125 mg/dL indicate increased risk for diabetes (prediabetes). Fasting plasma glucose results greater than or equal to 126 mg/dL meet the criteria for diagnosis of diabetes. In the absence of unequivocal hyperglycemia, results should be confirmed by repeat testing. In a patient with classic symptoms of hyperglycemia or hyperglycemic crisis, random plasma glucose results greater than or equal to 200 mg/dL meet the criteria for diagnosis of diabetes. Reference: Standards of Medical Care in Diabetes 2016, [place] Diabetes Association. Diabetes Care. 2016.39(Suppl 1). Performed By: #### 2 4323-8, 25502-9, 3015-3, 7 ####[facility] LABCLIA [id number] [place] [address] [place] Potassium [Moles/Vol] 4.9 mmol/L Normal 3.7-5.1 [facility] Comment on above: Order Comment: Speci men Type: BLOOD SPECIMENOrdering Facility: [facility] Address: [address] [place] [address] Performed By: #### 2 4323-8, 45412-7, 3015-3, 3023-7 ####[facility] LABCLIA [id number] [place] [address] [place] Protein [Mass/Vol] 7.2 g/dL Normal 6.3-8.0 [facility] Comment on above: Order Comment: Speci men Type: BLOOD SPECIMENOrdering Facility: [facility] Address: [address] [place], [place] [address] Performed By: #### 2 4323-8, 60349-3, 3016-3, 3024-7 ####[facility] LABCLIA [id number] [address] [address] [place] Sodium [Moles/Vol] 138 mmol/L Normal 136-144 [facility] Comment on above: Order Comment: Speci men Type: BLOOD SPECIMENOrdering Facility: [facility] Address: [address] [place] [address] Performed By: #### 2 4323-8, 41427-6, 6-3, 3024-7 ####[facility] LABCLIA [id number] [address] [address] [place] Urea nitrogen [Mass/Vol] 14 mg/dL Normal 7-21 [facility] Comment on above: Order Comment: Speci men Type: BLOOD SPECIMENOrdering Facility: [facility] Address: [address] [place] [address] Performed By: #### 2 4323-8, 87191-2, 6-3, 3024-7 ####[facility] LABCLIA [id number] [address] [address] [place] HbA1c (Bld)on 06-20-2024 Average glucose Estimated from glycated hemoglobin (Bld) [Mass/Vol] 108 mg/dL Normal [facility] Comment on above: Order Comment: Speci men Type: BLOOD SPECIMENOrdering Facility: [facility] Address: [address] [place] [address] Result Comment: eAG: (Estimated average glucose) is a calculated value from HgbA1c and is underwriting service representative of the average blood glucose level in the last 2-3 month period. Performed By: #### 5 5454-3 ####[facility] LABCLIA [id number] [address] [address] [place] HbA1c (Bld) [Mass fraction] 5.4 % Normal 4.3-5.6 [facility] Comment on above: Order Comment: Speci men Type: BLOOD SPECIMENOrdering Facility: [facility] Address: [address] [place] [address] Result Comment: [place] Diabetes Association guidelines indicate that patients with HgbA1c in the range 5.7-6.4% are at increased risk for development of diabetes, and intervention by lifestyle modification may be beneficial. HgbA1c greater or equal to 6.5% is considered diagnostic of diabetes. Performed By: #### 5 5454-3 ####[facility] LABCLIA [id number] [place] [address] [place] Lipid 1996 panelon 4 Cholesterol [Mass/Vol] 224 mg/dL High <200 [facility] Comment on above: Order Comment: Tysoni men Type: BLOOD SPECIMENOrdering Facility: [facility] Address: [address] [place] [address] Result Comment: <200 mg/dL, Desirable 200-239 mg/dL, Borderline high >239 mg/dL, High Performed By: #### 2 4323-8, 99535-0, 3015-3, 3027 ####[facility] LABCLIA [id number] [place] [address] [place] Cholesterol in HDL [Mass/Vol] 70 mg/dL Normal >39 [facility] Comment on above: Order Comment: Speci men Type: BLOOD SPECIMENOrdering Facility: [facility] Address: [address] [place] [address] Result Comment: 40-5 9 mg/dL, Acceptable >59 mg/dL, High: Negative risk factor for coronary heart disease <40 mg/dL, Low: Positive risk factor for coronary heart disease Performed By: #### 2 4323-8, 43049-8, 3016-3, 3024-7 ####[facility] LABCLIA [id number] [place] [address] [place] Cholesterol in LDL [Mass/Vol] 137 mg/dL High <100 [facility] Comment on above: Order Comment: Speci men Type: BLOOD SPECIMENOrdering Facility: [facility] Address: [address] [place] [address] Result Comment: <100 mg/dL, Optimal 100-129 mg/dL, Near optimal/above optimal 130-159 mg/dL, Borderline high 160-189 mg/dL, High >189 mg/dL, Very high Secondary prevention optimal LDL Cholesterol levels are recommended to be < 70 mg/dL Performed By: #### 2 4323-8, 82097-8, 3016-3, 3024-7 ####[facility] LABCLIA [id number] [place] [address] [place] Cholesterol in LDL/Cholesterol in HDL [Mass ratio] 1.96 {ratio} Normal <2.54 [facility] Comment on above: Order Comment: Katherine lopez Type: BLOOD SPECIMENOrdering Facility: [facility] Address: [address] [place] [address] Result Comment: Refe rence: 1. National Cholesterol Education Program ATP III Guideline At-A-Glance Quick Desk Reference: National Heart, Lung, and Blood [place]. National Institutes of Health. 2001: NIH Publication No. 01-3305. 2. An International Atherosclerosis Society position paper: global recommendations for the management of dyslipidemia: executive summary, Atherosclerosis. 2014: 232(2):410-413. Performed By: #### 2 4323-8, 98532-9, 3015-3, 3023-7 ####[facility] LABCLIA [id number] [place] [id number] [place] Cholesterol in VLDL [Mass/Vol] 17 mg/dL Normal <30 [facility] Comment on above: Order Comment: Katherine john Type: BLOOD SPECIMENOrdering Facility: [facility] Address: [address] [place] [address] Performed By: #### 2 4323-8, 37261-7, 3016-3, 3024-7 ####[facility] LABCLIA [id number] [place] [address] [place] Cholesterol non HDL [Mass/Vol] 154 mg/dL High <130 [facility] Comment on above: Order Comment: Speci men Type: BLOOD SPECIMENOrdering Facility: [facility] Address: [facility] [place] [address] Result Comment: <130 mg/dL, Optimal 130-159 mg/dL, Near optimal/above optimal 160-189 mg/dL, Borderline high 190-219 mg/dL, High >219 mg/dL, Very high Secondary prevention optimal non HDL Cholesterol levels are recommended to be <100 mg/dL Performed By: #### 2 4323-8, 96238-2, 3016-3, 3024-7 ####[facility] LABCLIA [id number] [place] [address] [place] Cholesterol.total/Choles terol in HDL [Mass ratio] 3.20 {ratio} Normal <5.10 [facility] Comment on above: Order Comment: Speci men Type: BLOOD SPECIMENOrdering Facility: [facility] Address: [address] [place] [address] Performed By: #### 2 4323-8, 32731-0, 3016-3, 3024-7 ####[facility] LABCLIA [id number] [place] [address] [place] FASTING TIME 12 hrs Normal [facility] Comment on above: Order Comment: Speci men Type: BLOOD SPECIMENOrdering Facility: [facility] Address: [address] [place] [address] Performed By: #### 2 4323-8, 13304-9, 3016-3, 3024-7 ####[facility] LABCLIA [id number] [place] [address] [place] Triglyceride [Mass/Vol] 87 mg/dL Normal <150 [facility] Comment on above: Order Comment: Speci men Type: BLOOD SPECIMENOrdering Facility: [facility] Address: [address] [place] [address] Result Comment: <150 mg/dL, Normal 150-199 mg/dL, Borderline high 200-499 mg/dL, High >499 mg/dL, Very high Performed By: #### 2 4323-8, 01126-2, 3016-3, 302-7 ####[facility] LABCLIA [id number] [address] [place] T4 Free SerPl-mCncon 024 Free T4 [Mass/Vol] 1.0 ng/dL Normal 0.9-1.7 [facility] Comment on above: Order Comment: Speci men Type: BLOOD SPECIMENOrdering Facility: [facility] Address: [address] [place] [address] Performed By: #### 2 4323-8, 81402-6, 3015-3, 3023-7 ####[facility] LABCLIA [id number] [address] [place] TSH SerPl-aCncon 06-20-2024 TSH Qn 3.570 m[IU]/L Normal 0.270-4.200 [facility] Comment on above: Order Comment: Speci men Type: BLOOD SPECIMENOrdering Facility: [facility] Address: [address] [place] [address] Performed By: #### 2 4323-8, 78449-9, 6-3, 3023-7 ####[facility] LABIA [id number] [address] [place] CNOVon 06-13-2024 CNOV Office Visit (FAMPWS) MILAN ALVARADO ([id number]) 1955 F Date Time Provider Department 06/13/24 1:20 PM DEBI ALEXANDER During your visit today, we recorded the following information about you: Pulse Respiration Blood pressure Weight 82/minute 16/minute 142/80 93.2 kg Height 1.66 m Debi Alexander APRN.STAFFING ASSOCIATE 06/13/2024 3:57 PM Signed Milan Alvarado is a 68 year old female here for a Medicare wellness visit. Medicare Health Risk Assessment General Health Very good Exercise: Minutes/Day 10 min Exercise: Days/Week 2 days Alcohol: Daily Use 4 or more times a week Alcohol: Drinks/Day 1 or 2 Alcohol: 6 or more drinks Never Feel off balance No Concerns: Teeth/Dentures No Concerns: Sexual function No Troubled by feelings No Frequency: Eating healthy diet Yes, daily ADLs requiring help No Safety precautions in home/vehicle yes Smoke, vape, chews tobacco No Difficulty hearing No Difficulty seeing No Current Providers Specialists: I have reviewed specialist-related care of the patient in the medical record. Medical/Family history review Reviewed and updated problem list, medical/surgical/fam gwen/social history, medications, and allergies. Opioid use review Opioid Medications (last 90 days) No data to display Depression Screening DEPRESSION SCREENING Ordered at: 06/13/24 1311 Based on score and interview, patient is: Not at risk for depression Screening tool discussed with patient, and I recommend: No further intervention at this time PHQ-2 Score: 0 PHQ-9 Score: 0 ANXIETY SCREENING Ordered at: 06/13/24 1311 Based on score and interview, patient is: Not at risk for anxiety Screening tool discussed with patient, and I recommend: No further intervention at this time KRISTA-2 Score: 0 KRISTA-7 Score: 0 Cognitive screening Mini Cog Score: 5 Cognitive screening reviewed and No further action needed (score 3-5). Functional Observation Was the patient's Timed Up AND Go test unsteady or >= 12 seconds? No Advance Care Planning Patient did not wish or was not able to name a surrogate decision maker or provide an advance care plan Measurements Pulse 82 Resp 16 Ht 166 cm (5' 5.35) Wt 93.2 kg (205 lb 7.5 oz) SpO2 97% BMI 33.82 kg/m? Vision Screening: Follows with optometry/ophthalmol ogy Assessment/Plan Medicare annual wellness visit, subsequent (Z00.00) - Counseled on healthy diet and regular exercise - Fall avoidance information provided - Personalized prevention plan provided - Discussed need for and benefit of weight loss. BMI 33.82 kg/(m2) This is a 68 year old female who presents today with: Patient presents with: Medicare Wellness Exam HISTORY OF PRESENT ILLNESS: Milan Alvarado is a 68 year old female. Patient presents with: Medicare Wellness Exam Here in the office for extensive exam. History of MVP, not currently following with cardiology or taking medication. Had echo completed in 2022. Asymptomatic, denies chest pain, palpitations, dizziness, or edema. The left ventricle is normal in size. Left ventricular systolic function is normal. EF = 57 ? 5% (2D 4-ch.) Grade I left ventricular diastolic dysfunction. - The right ventricle is normal in size. Right ventricular systolic function is normal. - There are no significant valvular abnormalities. Working on losing weight. Trying to eat a well balanced diet. Eating low carb diet. Likes sweets. Would like to try Wegovy. Family history of diabetes. Staying active during the day. Has been doing at home exercise. Mammogram: March 2024 Colonoscopy: 2016, due in 10 years. Vaccine: Would like flu vaccine PAST MEDICAL HISTORY: PAST MEDICAL HISTORY Diagnosis Date Head injury, unspecified 2006 Head Injury Unspec, Closed head injury, 3 day stay in [facility]. Mitral valve prolapse Pneumothorax 2006 Rib fractures 2006 Right side Snoring PAST SURGICAL HISTORY Procedure Laterality Date APPENDECTOMY COLONOSCOPY FLX DX W/COLLJ SPEC WHEN PFRMD 12/03/2011 Colonoscopy repeat 5 years COLONOSCOPY FLX DX W/COLLJ SPEC WHEN PFRMD 04/03/2017 Colonoscopy HYSTERECTOMY HX 15 years ago-total hysterectomy KNEE ARTHROSCOPY Right 06/26/2017 Dr. Peterson, [facility]. Torn Lateral Medial Meniscus LIG/TRNSXJ FLP TUBE ABDL/VAG APPR UNI/BI 1996 OPEN REPAIR OF ROTATOR CUFF ACUTE 2003 Right PAST SURGICAL HISTORY OF ORIF left hand PAST SURGICAL HISTORY OF ORIF right ankle PAST SURGICAL HISTORY OF 10/15/12 bilatral foot surgery SALPINGECTOMY Right SEPTOPLASTY/SUBMUCOU S RESECJ W/WO CARTILAGE GRF TOTAL ABDOMINAL HYSTERECT W/WO RMVL TUBE OVARY 2001 ALLERGIES Dust Mites and Grass Pollen MEDICATIONS Current Outpatient Medications Medication Sig chol/gl/ser/RNA/phen /prg/hb150 (SHARPER FOCUS ORAL) Take by mouth once daily. multivitamin/iron/fo lic acid (CENTRUM WOMEN ORAL) (more content not included)... Normal [facility] 04-05-2024 CNPN Telephone (FAMPWS) RACHAELMILAN ([id number]) 1955 F Date Time Provider Department 04/05/24 [facility] During your visit today, we recorded the following information about you: Saray Mcknight MA 04/05/2024 12:08 PM Signed Pt had outside Mammogram done through [facility]. This has been scanned into chart, under imaging tab. Please review results. PILLO Weller Mark D, MD 04/07/2024 9:49 AM Signed Mammogram is normal; repeat in one year MD Juan Luis Gottlieb Rilee, MA 04/07/2024 9:52 AM Signed Pt notified of results below from Provider. Also notified pt she is overdue for Annual Wellness-Medicare. Asked pt to contact office to schedule. Saray Mcknight MA Allergies As of Date: 04/05/2024 Noted Allergy Reaction DUST MITES 06/19/2005 GRASS POLLEN 06/19/2005 Date Reviewed: 01/26/2023 Reviewed by: Jim Sherman LPN - Fully Assessed Reason for Visit: Results [95] Cmt: Mammogram Facility-Administere d Medications as of 04/07/2024 - perflutren lipid microspheres 1.3 mL in NaCl (PF) 0.9% 10 mL injection (DEFINITY) - sodium chloride 0.9 % (flush) 10 mL (BD POSIFLUSH) Meds Comments as of 08/30/2020: Tylenol PRN in AM August 30, 2020 Marjorie Jones MA Problem List As Of Date 04/05/2024 Noted Resolved Mitral valve prolapse [I34.1] 02/24/2011 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 Gretel Turner MD Status: [facility] Study: SCRN MAMM (CAD)W/ROBLES BILAT Date of Exam: 03/14 11/03 Exam# [id number] Ordering Dr: Gretel Turner MD [id number] MAMMOGRAPHY - BILATERAL SCREENING REASON FOR EXAM: Female, 68 years old. Routine annual screening examination. PERTINENT HISTORY: Non-contributory. TECHNIQUE: Digital bilateral breast robles (3D mammographic acquisition) in the CC and MLO projections. 2-D mediolateral oblique (MLO) and craniocaudad (CC) views of both breasts were obtained. CAD: Full Field Digital Mammography with Computer Added Detection was performed. COMPARISON: Comparison is made with prior study dated February 23, 2023 and June 14, 2021. FINDINGS: Breast Composition: There are scattered areas of fibroglandular density. There are no dominant masses or suspicious calcifications. No other significant abnormalities are identified. There has been no significant change since the prior study. BI/SCRN MAMM (CAD)W/ROBLES BILAT IMPRESSION: Stable bilateral screening mammogram. Yearly follow-up mammogram recommended. (A) ASSESSMENT CATEGORY: BIRADS Category 1: Negative. A letter regarding these results will be sent to the patient by the facility within 30 days. Approximately 10% of breast cancers are not detected by mammography. A normal mammogram should not delay biopsy of a clinically suspicious abnormality. [id number] Electronically Signed: Logan Goodrich MD at 11:30 EDT , CC: Dr. Gretel Turner MD Art Class Model: Signed [facility] 03-31-2024 [place] Telephone (FAMPWS) MILAN ALVARADO ([id number]) 1955 F Date Time Provider Department 03/31/24 GRETEL TURNER FAMPWS During your visit today, we recorded the following information about you: Chasidy Hernandez RN 03/31/2024 8:25 AM Signed [facility] scheduling calls to request order for mammogram be faxed to them per patient request to schedule. Faxed to [phone] per request. Chasidy Hernandez RN Allergies As of Date: 03/31/2024 Noted Allergy Reaction DUST MITES 06/19/2005 GRASS POLLEN 06/19/2005 Date Reviewed: 01/26/2023 Reviewed by: Jim Sherman LPN - Fully Assessed Facility-Administere d Medications as of 03/31/2024 - perflutren lipid microspheres 1.3 mL in NaCl (PF) 0.9% 10 mL injection (DEFINITY) - sodium chloride 0.9 % (flush) 10 mL (BD POSIFLUSH) Meds Comments as of 08/30/2020: Tylenol PRN in AM August 30, 2020 Marjorie Jones MA Problem List As Of Date 03/31/2024 Noted Resolved Mitral valve prolapse [I34.1] 02/24/2011 Benign neoplasm of rectum and anal canal [D12.8*12/03/2011 Internal hemorrhoids without mention of complic*12/03/2011 Special screening for malignant neoplasms, colo*12/03/2011 LBBB (left bundle branch block) [I44.7] 04/22/2016 Encounter Status:Closed by CHASIDY HERNANDEZ on 03/31/24 Normal [facility] Vital Signs Date Time Vital Sign Value Performing Clinician Sam fallon 09-26-2024 08:44-0400 Body mass index (BMI) [Ratio] 31.21 kg/m2 Debi Alexander APRN.CNP Work Phone: [facility] 09-26-2024 08:44-0400 Body weight 86 kg Debi Alexander APRN.STAFFING ASSOCIATE Work Phone: [facility] 09-26-2024 08:44-0400 Diastolic blood pressure 80 mm[Hg] Debi Alexander APRN.STAFFING ASSOCIATE Work Phone: [facility] 09-26-2024 08:44-0400 Heart rate 68 /min Debi Alexander APRN.STAFFING ASSOCIATE Work Phone: [facility] 09-26-2024 08:44-0400 Respiratory rate 16 /min Debi Alexander APRN.STAFFING ASSOCIATE Work Phone: [facility] 09-26-2024 08:44-0400 SaO2% (BldA) [Mass fraction] 97 % Debi Alexander APRN.CNP Work Phone: [facility] 09-26-2024 08:44-0400 Systolic blood pressure 132 mm[Hg] Debi Tannhof BENEFITS CLERK.STAFFING ASSOCIATE Work Phone: [facility] 06-13-2024 13:06-0500 Body height 166 cm Debi Tannhof BENEFITS CLERK.STAFFING ASSOCIATE Work Phone: [facility] 06-13-2024 13:06-0500 Body mass index (BMI) [Ratio] 33.82 kg/m2 Debi Tannhof BENEFITS CLERK.STAFFING ASSOCIATE Work Phone: [facility] 06-13-2024 13:06-0500 Body weight 93.2 kg Debi Tannhof BENEFITS CLERK.STAFFING ASSOCIATE Work Phone: [facility] 06-13-2024 13:06-0500 Diastolic blood pressure 80 mm[Hg] Debi Tannhof BENEFITS CLERK.STAFFING ASSOCIATE Work Phone: [facility] 06-13-2024 13:06-0500 Heart rate 82 /min Debi Tannhof BENEFITS CLERK.STAFFING ASSOCIATE Work Phone: [facility] 06-13-2024 13:06-0500 Respiratory rate 16 /min Debi Tannhof BENEFITS CLERK.STAFFING ASSOCIATE Work Phone: [facility] 06-13-2024 13:06-0500 SaO2% (BldA) [Mass fraction] 97 % Debi Tannhof BENEFITS CLERK.STAFFING ASSOCIATE Work Phone: [facility] 06-13-2024 13:06-0500 Systolic blood pressure 142 mm[Hg] Debi Tannhof BENEFITS CLERK.STAFFING ASSOCIATE Work Phone: [facility] 01-26-2023 12:50-0400 Body height 170 cm Debi Tannhof BENEFITS CLERK.STAFFING ASSOCIATE Work Phone: [facility] 01-26-2023 12:50-0400 Body weight 94.35 kg Debi Tannhof BENEFITS CLERK.STAFFING ASSOCIATE Work Phone: [facility] 01-26-2023 12:50-0400 Diastolic blood pressure 88 mm[Hg] Debi Tannhof BENEFITS CLERK.STAFFING ASSOCIATE Work Phone: [facility] 01-26-2023 12:50-0400 Heart rate 78 /min Debi Alexander BENEFITS CLERK.STAFFING ASSOCIATE Work Phone: [facility] 01-26-2023 12:50-0400 Respiratory rate 63 /min Debi Alexander BENEFITS CLERK.STAFFING ASSOCIATE Work Phone: [facility] 01-26-2023 12:50-0400 SaO2% (BldA) [Mass fraction] 98 % Debi Alexander BENEFITS CLERK.STAFFING ASSOCIATE Work Phone: [facility] 01-26-2023 12:50-0400 Systolic blood pressure 132 mm[Hg] Debiannie Alexander BENEFITS CLERK.STAFFING ASSOCIATE Work Phone: [facility] Encounters Encounter Date Encounter Type Care Provider Facility Start: 03-02-2025 End: 03-02-[address] Gretel Turner MD Work Phone: -Laboratory Specimen Start: 03-02-2025 End: 03-02-2025 Patient encounter procedure Jerel Estrada MD -Laboratory Specimen Work Phone: Start: 03-02-2025 End: 03-02-2025 ambulatory Jerel Estrada [facility] Facility:[facility] Start: 09-26-2024 End: 09-26-2024 Office outpatient visit 15 minutes Debi Alexander BENEFITS CLERK.STAFFING ASSOCIATE Work Phone: Family [facility] Comment on above: Class 1 obesity with body mass index (BMI) of 31.0 to 31.9 in adult, unspecified obesity type, unspecified whether serious comorbidity present (Primary Dx) Start: 09-26-2024 End: 09-26-2024 ambulatory DEBI ALEXANDER Facility:[facility] Start: 08-26-2024 End: 08-26-2024 Refill Gretel Turner MD Work Phone: Family [facility] Comment on above: Refill Request Start: 07-29-2024 End: 07-29-2024 Telephone encounter Gretel Turner MD Work Phone: Family [facility] Comment on above: Medication Question (Wegovy) Start: 06-28-2024 End: 06-28-2024 Telephone encounter Gretel Turner MD Work Phone: [facility] Comment on above: Insurance Authorizat ion (Andersony ) Start: 06-23-2024 End: 06-23-2024 Telephone encounter Debi Alexander APRN.CNP Work Phone: [facility] Comment on above: Results (Labs) Start: 06-20-2024 End: 06-20-2024 ambulatory GRETEL MESABANNERMAXINE Facility:[facility] Start: 06-13-2024 End: 06-13-2024 ambulatory GRETEL Peres [facility] Facility:[facility] Start: 06-13-2024 End: 06-13-2024 Patient encounter procedure Debi Alexander APRN.CNP Work Phone: [facility] Comment on above: Medicare annual well ness visit, initial (Primary Dx); Mitral valve prolapse; Elevated glucose; Hyperlipidemia, mixed; Class 1 obesity with body mass index (BMI) of 33.0 to 33.9 in adult, unspecified obesity type, unspecified whether serious comorbidity present; Screening for depression; Encounter for screening examination for other mental health and behavioral disorders; Encounter for immunization Start: 04-05-2024 End: 04-07-2024 Telephone encounter Gretel Turner MD Work Phone: [facility] Comment on above: Results (Mammogram) Start: 04-05-2024 End: 04-05-2024 ambulatory Gretel Turner Facility:[facility] Start: 03-31-2024 End: 03-31-2024 Telephone encounter Gretel Turner MD Work Phone: [facility] Start: 03-30-2024 End: 04-04-2024 ambulatory Gretel Turner MD Work Phone: Internal Medicine [place] [address] Start: 02-25-2024 ambulatory [facility] Start: 02-25-2024 Patient encounter procedure Gama Wong MA [facility] Comment on above: Population Health Na vigation Outreach (Dorene Rivera [facility]) Start: 12-15-2023 ambulatory Coty Hart [facility] Start: 12-15-2023 Patient encounter procedure Coty Hart MA [facility] Comment on above: Population Health Na vigation Outreach ([place] Annual Wellness Visit ) Start: 02-23-2023 End: 02-23-2023 ambulatory [facility] Work Phone: Start: 02-23-2023 End: 02-23-2023 Patient encounter procedure [facility]-Outpatient Breast Imaging Work Phone: Start: 02-11-2023 Telephone encounter Frankogabe scott BENEFITS CLERK.STAFFING ASSOCIATE Work Phone: [facility] Comment on above: Results Start: 01-26-2023 End: 01-26-2023 Patient encounter procedure Debi Alexander APRN.STAFFING ASSOCIATE Work Phone: [facility] Comment on above: Medicare annual well ness visit, initial (Primary Dx); Mitral valve prolapse; Asymptomatic menopause; Elevated glucose; Encounter for screening mammogram for malignant neoplasm of breast; Screening cholesterol level Start: 07-16-2022 ambulatory Gretel yusuf MD Work Phone: Internal Medicine [facility] Procedures Date Procedure Procedure Detail Performing Clinician Start: 06-20-2024 Lipid 1996 panel - S molina or Plasma Debi Alexander APRN.STAFFING ASSOCIATE Work Phone: Start: 06-13-2024 Adult depression scr eening assessment Debi Alexander APRN.STAFFING ASSOCIATE Work Phone: Start: 03-03-2023 Lipid 1996 panel - S molina or Plasma Coty Hart MA Start: 02-23-2023 Screening mammography Start: 06-14-2021 Mammography Gretel briggs MD Work Phone: Start: 04-03-2017 Colonoscopy Gretel briggs MD Work Phone: Plan of Treatment Date Care Activity Detail Author Start: 11-09-2031 RSV Vaccine (1 - 1-d ose 75+ series) RSV Vaccine (1 - 1-dose 75+ series) [facility] Start: 06-20-2029 Lipid panel Lipid Screening [facility] Start: 03-03-2028 Lipid panel Lipid Screening [facility] Start: 06-20-2027 Diabetes Screening Diabetes Screenin g [facility] Start: 04-03-2027 Colonoscopy COLONOSCOPY [facility] Start: 04-03-2027 COLORECTAL CANCER SCREENING COLORECTAL CANCER SCREENING [facility] Start: 04-03-2027 Screening for malign ant neoplasm of colon [facility] Start: 12-21-2026 Urine microalbumin profile [facility] Start: 03-03-2026 Diabetes Screening Diabetes Screenin g [facility] Start: 06-13-2025 Anxiety Screening Anxiety Screening [facility] Start: 06-13-2025 Covid-19 Vaccine () Covid-19 Vaccine () [facility] Comment on above: Postponed from 03/13 (Declined at this time) Start: 06-13-2025 Depression Screening Depression Scre ening [facility] Start: 06-13-2025 Hepatitis C screening Hepatitis C Sc dre [facility] Comment on above: Postponed from 11/08 (Declined at this time) Start: 06-13-2025 Pneumococcal Vaccine : 50+ (1 of 1 - PCV) Pneumococcal Vaccine: 50+ (1 of 1 - PCV) [facility] Comment on above: Postponed from 11/08 (Declined at this time) Start: 06-13-2025 Pneumococcal Vaccine : 65+ (1 of 1 - PCV) Pneumococcal Vaccine: 65+ (1 of 1 - PCV) [facility] Comment on above: Postponed from 11/08 (Declined at this time) Start: 04-05-2025 Screening for malign ant neoplasm of breast Mammogram Screening [facility] Start: 12-08-2024 LIPID SCREEN LIPID SCREEN [facility] Start: 09-26-2024 End: 09-26-2024 Patient encounter procedure 09/26/2024 9:00 AM EDT Office Visit [facility] [address] [place] [address] Debi Alexander, CISCO.STAFFING ASSOCIATE [address] [place] [address] 3 month follow up for weight [facility] Comment on above: 3 month follow up fo r weight Start: 07-13-2024 Advance Directive Discussion Advance Directive Discussion [facility] Start: 07-08-2024 DIABETES SCREEN DIABETES SCREEN [facility] Start: 06-20-2024 End: 06-20-2024 ambulatory 06/20/2024 10:00 AM EST Results Only [facility] Draw Station [address] [address] [facility] Draw Station Start: 06-13-2024 End: 09-12-2024 Comprehensive metabolic 2000 panel - Serum or Plasma COMPREHENSIVE METABOLIC PANEL Lab Routine Mitral valve prolapse Expected: 06/13/2024, Expires: 09/12/2024 [facility] Work Phone: Comment on above: Expected: 06/13/2024 , Expires: 09/12/2024 Start: 06-13-2024 End: 09-12-2024 Hemoglobin A1c in Blood HEMOGLOBIN A1C Lab Routine Elevated glucose Expected: 06/13/2024, Expires: 09/12/2024 [facility] Comment on above: Expected: 06/13/2024 , Expires: 09/12/2024 Start: 06-13-2024 End: 09-12-2024 Lipid 1996 panel - Serum or Plasma LIPID PANEL BASIC Lab Routine Hyperlipidemia, mixed Expected: 06/13/2024, Expires: 09/12/2024 [facility] Comment on above: Expected: 06/13/2024 , Expires: 09/12/2024 Start: 06-13-2024 End: 09-12-2024 Thyrotropin [Units/volume] in Serum or Plasma THYROID STIMULATING HORMONE Lab Routine Class 1 obesity with body mass index (BMI) of 33.0 to 33.9 in adult, unspecified obesity type, unspecified whether serious comorbidity present Expected: 06/13/2024, Expires: 09/12/2024 [facility] Comment on above: Expected: 06/13/2024 , Expires: 09/12/2024 Start: 06-13-2024 End: 09-12-2024 Thyroxine (T4) free [Mass/volume] in Serum or Plasma T4 FREE/FREE THYROXINE Lab Routine Class 1 obesity with body mass index (BMI) of 33.0 to 33.9 in adult, unspecified obesity type, unspecified whether serious comorbidity present Expected: 06/13/2024, Expires: 09/12/2024 [facility] Comment on above: Expected: 06/13/2024 , Expires: 09/12/2024 Start: 03-13-2024 Covid-19 Vaccine ( season) Covid-19 Vaccine () [facility] Start: 03-13-2024 Covid-19 Vaccine () Covid-19 Vaccine () [facility] Start: 03-13-2024 Influenza vaccination [facility] Start: 02-24-2024 Screening for malign ant neoplasm of breast Mammogram Screening [facility] Start: 01-27-2024 COVID-19 VACCINE (#1) COVID-19 VACCI NE (#1) [facility] Comment on above: Postponed from 05/10 (Declined at this time) Start: 01-27-2024 HEPATITIS C SCREENING HEPATITIS C [facility] Comment on above: Postponed from 11/08 (Declined at this time) Start: 01-27-2024 Hepatitis C screening Hepatitis C [facility] Comment on above: Postponed from 11/08 (Declined at this time) Start: 01-27-2024 Pneumococcal Vaccine : 65+ (1 of 1 - PCV) Pneumococcal Vaccine: 65+ (1 of 1 - PCV) [facility] Comment on above: Postponed from 11/08 (Declined at this time) Start: 01-27-2024 PNEUMOCOCCAL: 65+ (1 - PCV) PNEUMOCOCCAL: 65+ (1 - PCV) [facility] Comment on above: Postponed from 11/08 (Declined at this time) Start: 01-27-2024 SHINGRIX VACCINE (2 of 2) CHAN GRIX VACCINE (2 of 2) [facility] Comment on above: Postponed from 09/20 (Declined at this time) Start: 07-13-2023 Advance Directive Discussion Advance Directive Discussion [facility] Start: 07-13-2023 Behavioral Health Screening Behavioral Health Screening [facility] Start: 03-13-2023 Covid-19 Vaccine ( season) Covid-19 Vaccine () [facility] Start: 03-13-2023 Influenza vaccination INFLUENZA (#1) [facility] Start: 01-26-2023 End: 03-28-2023 Comprehensive metabolic 2000 panel - Serum or Plasma COMP METABOLIC PANEL Lab Routine Medicare annual wellness visit, initial Expected: 01/26/2023, Expires: 03/28/2023 [facility] Work Phone: Comment on above: Expected: 01/26/2023 , Expires: 03/28/2023 Start: 01-26-2023 End: 03-28-2023 Hemoglobin A1c in Blood HGB A1C Lab Routine Elevated glucose Expected: 01/26/2023, Expires: 03/28/2023 [facility] Work Phone: Comment on above: Expected: 01/26/2023 , Expires: 03/28/2023 Start: 01-26-2023 End: 03-28-2023 Lipid 1996 panel - Serum or Plasma LIPID PANEL BASIC Lab Routine Screening cholesterol level Expected: 01/26/2023, Expires: 03/28/2023 [facility] Work Phone: Comment on above: Expected: 01/26/2023 , Expires: 03/28/2023 Start: 07-13-2022 ADVANCE DIRECTIVE DISCUSSION ADVANCE DIRECTIVE DISCUSSION [facility] Start: 07-13-2022 DEPRESSION ASSESSMENT DEPRESSION ASS ESSMENT [facility] Start: 06-14-2022 Mammography MAMMOGRAM [facility] Start: 03-13-2022 Influenza vaccination INFLUENZA (#1) [facility] Start: 2021 BONE DENSITY BONE DENSITY [facility] Start: 2021 Pneumococcal Vaccine : 65+ (1 of 1 - PCV) Pneumococcal Vaccine: 65+ (1 of 1 - PCV) [facility] Start: 2021 PNEUMOCOCCAL: 65+ (1 - PCV) PNEUMOCOCCAL: 65+ (1 - PCV) [facility] Start: 2021 Screening for osteoporosis Bone Dens ity Screening [facility] Start: 09-21-2019 SHINGRIX VACCINE (2 of 2) CHAN GRIX VACCINE (2 of 2) [facility] Start: 2016 RSV Vaccine (1 - 1-d ose 60+ series) RSV Vaccine (1 - 1-dose 60+ series) [facility] Start: 2001 COLOGUARD (FIT-DNA) COLOGUARD (FIT-D NA) [facility] Start: [address] COLONOGRAPHY [facility] Start: 2001 FECAL OCCULT BLOOD FECAL OCCULT BLOO D [facility] Start: 2001 Screening for malign ant neoplasm of colon [facility] Start: 2001 SIGMOIDOSCOPY SIGMOIDOSCOPY [facility] Start: 1974 Anxiety Screening Anxiety Screening [facility] Start: 1974 Depression Screening Depression Scre ening [facility] Start: 1974 HEPATITIS C SCREENING HEPATITIS C [place] [facility] Start: 1974 Hepatitis C screening Hepatitis C [facility] Start: 1974 HIV SCREENING HIV SCREENING [facility] Start: 05-10-1957 COVID-19 VACCINE (#1) COVID-19 VACCI NE (#1) [facility] End: 04-29-2025 DBT Breast - bilateral screening KRISHNA SCREENING W ROBLES Radiology Routine Encounter for screening mammogram for breast cancer 1 Occurrences starting 03/30/2024 until 04/29/2025 [facility] Work Phone: Comment on above: 1 Occurrences starti ng 03/30/2024 until 04/29/2025 End: 02-25-2024 DXA-AXIAL SKELETON DXA-AXIAL SKELETON Radiology Routine Asymptomatic menopause 1 Occurrences starting 01/26/2023 until 02/25/2024 [facility] Work Phone: Comment on above: 1 Occurrences starti ng 01/26/2023 until 02/25/2024 End: 01-27-2024 Echocardiography ECHO Cardiology Routine Mitral valve prolapse 1 Occurrences starting 01/26/2023 until 01/27/2024 [facility] Work Phone: Comment on above: 1 Occurrences starti ng 01/26/2023 until 01/27/2024 End: 08-15-2023 KRISHNA SCREENING KRISHNA SCREENING Radiology Routine Encounter for screening mammogram for breast cancer 1 Occurrences starting 07/16/2022 until 08/15/2023 [facility] Work Phone: Comment on above: 1 Occurrences starti ng 07/16/2022 until 08/15/2023 End: 02-25-2024 KRISHNA SCREENING W ROBLES KRISHNA SCREENING W ROBLES Radiology Routine Encounter for screening mammogram for malignant neoplasm of breast 1 Occurrences starting 01/26/2023 until 02/25/2024 [facility] Work Phone: Comment on above: 1 Occurrences starti ng 01/26/2023 until 02/25/2024 [facility] Immunizations Immunization Date Immunization Notes Care Provider Ranjit barry 06-13-2024 influenza, high dose seasonal, preservative-free Debi Alexander BENEFITS CLERK.STAFFING ASSOCIATE Work Phone: [facility] 03-30-2019 influenza virus vaccine, unspecified formulation Coty Hart MA [facility] 12-21-2016 tetanus toxoid, redu ritu diphtheria toxoid, and acellular pertussis vaccine, adsorbed Gretel Turner MD Work Phone: [facility] 04-22-2011 influenza virus vaccine, unspecified formulation Gretel Turner MD Work Phone: [facility] 11-10-2006 tetanus toxoid, redu ritu diphtheria toxoid, and acellular pertussis vaccine, adsorbed Gretel Turner MD Work Phone: [facility] Payers Date Payer Category Payer Self-pay [id number] 2021 Medicare (Managed Care) DORENE LARSEN [facility] [id number] 2021 Unknown [id number] 2006 Unknown [id number] Medicare [id number] Unknown [id number] Unknown [id number] Unknown [id number] Social History Date Type Detail Facility Start: 02-24-2011 End: 06-13-2024 Tobacco smoking status NHIS Ex-smoker [facility] End: 07-06-1986 History of tobacco use Current smoker [facility] End: 07-06-1986 History of tobacco use Cigarette Smoker [facility] Start: 02-24-2011 End: 06-13-2024 Tobacco use and exposure Smokeless tobacco non-user [facility] Start: 02-26-2022 End: 09-26-2024 Alcohol intake Current drinker of alcohol (finding) [facility] Start: 11-15-2019 End: 11-21-2019 History SDOH Alcohol Frequency 5 [facility] Start: 11-21-2019 End: 07-08-2021 History SDOH Alcohol Std Drinks 1 [facility] Start: 11-21-2019 End: 07-08-2021 [facility] Start: 11-15-2019 History SDOH Social Connections Meetings 3 [facility] Start: 11-15-2019 History SDOH Social Connections Living 4 [facility] Start: 11-15-2019 History SDOH Physica l Activity DPW 7 [facility] Start: 11-15-2019 Education 12 [facility] Start: 1955 Sex Assigned At Female C [facility] Work Phone: Start: 01-23-2023 End: 06-07-2024 History of Social function [facility] Start: 01-23-2023 End: 06-07-2024 Social connection and isolation panel [facility] Do you belong to any clubs or organizations such as jain groups, unions, fraternal or athletic groups, or school groups? Yes [facility] Are you now , , , , never or living with a partner? [facility] How often to you hav e a drink containing alcohol? 4 or more times a week [facility] How many standard dr inks containing alcohol do you have on a typical day? 1 or 2 [facility] How often do you hav e 6 or more drinks on 1 occasion? Never [facility] How hard is it for y ou to pay for the very basics like food, housing, medical care, and heating Not hard at all [facility] Do you feel stress - tense, restless, nervous, or anxious, or unable to sleep at night because your mind is troubled all the time - these days [OSQ] Not at all [facility] (I/We) worried ute er (my/our) food would run out before (I/we) got money to buy more. Never true [facility] In the past 12 month s, was there a time when you were not able to pay the mortgage or rent on time? No [facility] Start: 12-21-2016 Tobacco smoking stat [facility] Unknown if ever smoked [facility] Start: 12-21-2016 Tobacco smoking stat [facility] Never smoked tobacco (finding) [facility] Functional Status Date Assessment Result Facility 01-03-2014 Are you deaf, or do you have serious difficulty hearing No 01/03/2014 10:11 AM Kayleen Beckwith Ma No [facility] 01-03-2014 Are you blind, or do you have serious difficulty seeing, even when wearing glasses No 01/03/2014 10:11 AM Kayleen Beckwith Ma No [facility] 01-03-2014 Do you have serious difficulty walking or climbing stairs No 01/03/2014 10:11 AM Kayleen Beckwith Ma No [facility] 01-03-2014 Do you have difficul ty dressing or bathing No 01/03/2014 10:11 AM Kayleen Beckwith Ma No [facility] 01-03-2014 Because of a physica l, mental, or emotional condition, do you have difficulty doing errands alone such as visiting a physician's office or shopping No 01/03/2014 10:11 AM EDT Kayleen Neumann Ma [facility] Mental Status Date Assessment Result Facility 01-03-2014 Because of a physica l, mental, or emotional condition, do you have serious difficulty concentrating, remembering, or making decisions No 01/03/2014 10:11 AM EDT Kayleen Neumann Ma [facility] Clinical Notes 01-26-2023 to 09-26-2024 Debi Alexander APRN.STAFFING ASSOCIATE - 09/26/2024 9:00 AM EDTPatient InstructionsTelephone Encounter - Franko Alex APRN.STAFFING ASSOCIATE - 08/26/2024 1:22 PM ESTPatient InstructionsPatient Instructions Note Date & Type Note Facility 09-26-2024 History of Presen t illness Narrative This is a 68 year old female who presents today with: Patient presents with: Follow Up: 3 month follow up HISTORY OF PRESENT ILLNESS: Milan Alvarado is a 68 year old female. Patient presents with: Follow Up: 3 month follow up 3 month follow up In June started on Wegovy. Currently taking 1 mg once weekly. Starting weight was 205 pounds. Today's weight is 189 lbs. Doing well with medication. Has changed eating habits. Trying to eat when she is hungry. Increasing protein. Exercising now that the weather is changing. No side effects to medication. PAST MEDICAL HISTORY: PAST MEDICAL HISTORY Diagnosis Date Head injury, unspecified 2006 Head Injury Unspec, Closed head injury, 3 day stay in [facility]. Mitral valve prolapse Pneumothorax 2006 Rib fractures 2007 Right side Snoring PAST SURGICAL HISTORY Procedure Laterality Date APPENDECTOMY COLONOSCOPY FLX DX W/COLLJ SPEC WHEN PFRMD 12/03/2011 Colonoscopy repeat 5 years COLONOSCOPY FLX DX W/COLLJ SPEC WHEN PFRMD 04/03/2017 Colonoscopy HYSTERECTOMY HX 15 years ago-total hysterectomy KNEE ARTHROSCOPY Right 06/26/2017 Dr. Peterson, [facility]. Torn Lateral Medial Meniscus LIG/TRNSXJ FLP TUBE ABDL/VAG APPR UNI/BI 1996 OPEN REPAIR OF ROTATOR CUFF ACUTE 2003 Right PAST SURGICAL HISTORY OF ORIF left hand PAST SURGICAL HISTORY OF ORIF right ankle PAST SURGICAL HISTORY OF 10/15/12 bilatral foot surgery SALPINGECTOMY Right SEPTOPLASTY/SUBMUCOUS RESECJ W/WO CARTILAGE GRF TOTAL ABDOMINAL HYSTERECT W/WO RMVL TUBE OVARY 2001 ALLERGIES Dust Mites and Grass Pollen MEDICATIONS Current Outpatient Medications Medication Sig semaglutide, weight loss, (WEGOVY) 1 mg/0.5 mL pen injector Inject 0.5 mL subcutaneously one time a week. chol/gl/ser/RNA/phen/prg/hb150 (SHARPER FOCUS ORAL) Take by mouth once daily. multivitamin/iron/folic acid (CENTRUM WOMEN ORAL) Take by mouth once daily. No current facility-administered medications for this visit. FAMILY HISTORY Problem Relation Age of Onset Diabetes Brother Diabetes Mother Heart Brother MVP, SBE Social History Tobacco Use Smoking status: Former Current packs/day: 0.00 Types: Cigarettes Quit date: 07/06/1986 Years since quittin.2 Smokeless tobacco: Never Vaping Use Vaping status: Never Used Substance Use Topics Alcohol use: Yes Comment: occasional Drug use: No REVIEW OF SYSTEMS GENERAL: No weight loss, malaise or fevers/chills HEENT: Negative for frequent or significant headaches, No changes in hearing or vision. NECK: Negative for lumps, goiter, pain and significant neck swelling RESPIRATORY: Negative for cough, hemoptysis, wheezing, dyspnea or shortness of breath CARDIOVASCULAR: Negative for chest pain, leg swelling, orthopnea, or palpitations GI: No nausea, vomiting, or diarrhea/constipation. No hematochezia/melena. No heartburn or reflux symptoms. : No history of dysuria, frequency or incontinence MUSCULOSKELETAL: Negative for joint pain or swelling. SKIN: Negative for lesions, rash, and itching ENDOCRINE: Negative for cold or heat intolerance, polyuria, polydipsia and goiter NEURO: No history of headaches, syncope, paralysis, seizures or tremors MOOD: Negative for depression, anxiety, or suicidal ideation. EXAM: BP 132/80 Pulse 68 Resp 16 Wt 86 kg (189 lb 9.5 oz) SpO2 97% BMI 31.21 kg/m PHYSICAL EXAM: General Appearance: Well appearing, alert, in no acute distress, well-hydrated, well nourished. Skin: Skin color, texture, turgor normal, no suspicious rashes or lesions. Head: Normocephalic, no masses, lesions, tenderness or abnormalities. Eyes: Anicteric sclera. Extraocular movements are intact. Lungs: Lungs clear to auscultation. No wheezing, rhonchi, rales. Heart: RRR without murmur, gallop, or rubs. No ectopy. Extremities: No deformities, edema, skin discoloration, clubbing or cyanosis. Good capillary refill. Peripheral Pulses: Normal, Capillary refill <2secs, strong peripheral pulses, Pulses palpable. Neurologic: Gait normal. Sensation grossly intact. ASSESSMENT/PLAN: 1. Class 1 obesity with body mass index (BMI) of 31.0 to 31.9 in adult, unspecified obesity type, unspecified whether serious comorbidity present - ICD9: 278.00, V85.31, ICD10: E66.811, Z68.31 Weight decreasing - Increase Semaglutide (Wegovy) - Continue with lifestyle changes at home. - SEMAGLUTIDE (WEIGHT LOSS) 1.7 MG/0.75 ML SUBCUTANEOUS PEN INJECTOR Follow-up in 3 months or sooner as needed. Discussed treatment plan and patient voices understanding. Patient's questions answered appropriately. Medications and potential side effects were discussed and patient voices understanding. Debi Alexander APRN.PRASAD This note was partially generated using [employer] voice recognition system. Note was reviewed for accuracy. There may be minor misspellings or grammar miscues with [employer] voice recognition. documented in this encounter [facility] 09-26-2024 Note HNO ID: [id number] Author: DEBI ALEXANDER APRN.PRASAD Service: ? Author Type: Nurse Practitioner Type: Progress Notes Filed: 09/26/2024 09:37 Note Text: This is a 68 year old female who presents today with: Patient presents with: Follow Up: 3 month follow up HISTORY OF PRESENT ILLNESS: Milan Alvarado is a 68 year old female. Patient presents with: Follow Up: 3 month follow up 3 month follow up In June started on Wegovy. Currently taking 1 mg once weekly. Starting weight was 205 pounds. Today's weight is 189 lbs. Doing well with medication. Has changed eating habits. Trying to eat when she is hungry. Increasing protein. Exercising now that the weather is changing. No side effects to medication. PAST MEDICAL HISTORY: PAST MEDICAL HISTORY Diagnosis Date Head injury, unspecified 2006 Head Injury Unspec, Closed head injury, 3 day stay in [facility]. Mitral valve prolapse Pneumothorax 2006 Rib fractures 2007 Right side Snoring PAST SURGICAL HISTORY Procedure Laterality Date APPENDECTOMY COLONOSCOPY FLX DX W/COLLJ SPEC WHEN PFRMD 12/03/2011 Colonoscopy repeat 5 years COLONOSCOPY FLX DX W/COLLJ SPEC WHEN PFRMD 04/03/2017 Colonoscopy HYSTERECTOMY HX 15 years ago-total hysterectomy KNEE ARTHROSCOPY Right 06/26/2017 Dr. Peterson, [facility]. Torn Lateral Medial Meniscus LIG/TRNSXJ FLP TUBE ABDL/VAG APPR UNI/BI 1996 OPEN REPAIR OF ROTATOR CUFF ACUTE 2003 Right PAST SURGICAL HISTORY OF ORIF left hand PAST SURGICAL HISTORY OF ORIF right ankle PAST SURGICAL HISTORY OF 10/15/12 bilatral foot surgery SALPINGECTOMY Right SEPTOPLASTY/SUBMUCOUS RESECJ W/WO CARTILAGE GRF TOTAL ABDOMINAL HYSTERECT W/WO RMVL TUBE OVARY 2001 ALLERGIES Dust Mites and Grass Pollen MEDICATIONS Current Outpatient Medications Medication Sig semaglutide, weight loss, (WEGOVY) 1 mg/0.5 mL pen injector Inject 0.5 mL subcutaneously one time a week. chol/gl/ser/RNA/phen/prg/hb150 (SHARPER FOCUS ORAL) Take by mouth once daily. multivitamin/iron/folic acid (CENTRUM WOMEN ORAL) Take by mouth once daily. No current facility-administered medications for this visit. FAMILY HISTORY Problem Relation Age of Onset Diabetes Brother Diabetes Mother Heart Brother MVP, SBE Social History Tobacco Use Smoking status: Former Current packs/day: 0.00 Types: Cigarettes Quit date: 07/06/1986 Years since quittin.2 Smokeless tobacco: Never Vaping Use Vaping status: Never Used Substance Use Topics Alcohol use: Yes Comment: occasional Drug use: No REVIEW OF SYSTEMS GENERAL: No weight loss, malaise or fevers/chills HEENT: Negative for frequent or significant headaches, No changes in hearing or vision. NECK: Negative for lumps, goiter, pain and significant neck swelling RESPIRATORY: Negative for cough, hemoptysis, wheezing, dyspnea or shortness of breath CARDIOVASCULAR: Negative for chest pain, leg swelling, orthopnea, or palpitations GI: No nausea, vomiting, or diarrhea/constipation. No hematochezia/melena. No heartburn or reflux symptoms. : No history of dysuria, frequency or incontinence MUSCULOSKELETAL: Negative for joint pain or swelling. SKIN: Negative for lesions, rash, and itching ENDOCRINE: Negative for cold or heat intolerance, polyuria, polydipsia and goiter NEURO: No history of headaches, syncope, paralysis, seizures or tremors MOOD: Negative for depression, anxiety, or suicidal ideation. EXAM: BP 132/80 Pulse 68 Resp 16 Wt 86 kg (189 lb 9.5 oz) SpO2 97% BMI 31.21 kg/m? PHYSICAL EXAM: General Appearance: Well appearing, alert, in no acute distress, well-hydrated, well nourished. Skin: Skin color, texture, turgor normal, no suspicious rashes or lesions. Head: Normocephalic, no masses, lesions, tenderness or abnormalities. Eyes: Anicteric sclera. Extraocular movements are intact. Lungs: Lungs clear to auscultation. No wheezing, rhonchi, rales. Heart: RRR without murmur, gallop, or rubs. No ectopy. Extremities: No deformities, edema, skin discoloration, clubbing or cyanosis. Good capillary refill. Peripheral Pulses: Normal, Capillary refill <2secs, strong peripheral pulses, Pulses palpable. Neurologic: Gait normal. Sensation grossly intact. ASSESSMENT/PLAN: 1. Class 1 obesity with body mass index (BMI) of 31.0 to 31.9 in adult, unspecified obesity type, unspecified whether serious comorbidity present - ICD9: 278.00, V85.31, ICD10: E66.811, Z68.31 Weight decreasing - Increase Semaglutide (Wegovy) - Continue with lifestyle changes at home. - SEMAGLUTIDE (WEIGHT LOSS) 1.7 MG/0.75 ML SUBCUTANEOUS PEN INJECTOR Follow-up in 3 months or sooner as needed. Discussed treatment plan and patient voices understanding. Patient's questions answered appropriately. Medications and potential side effects were discussed and patient voices understanding. Debi Alexander APRN.STAFFING ASSOCIATE This note was partially generated using [email or web address] (more content not included)... [facility] 09-26-2024 Instructions Debi Alexander APRN.CNP - 09/26/2024 8:57 AM EDT Increase Wegovy 1.7 mg weekly Continue to work on lifestyle changes at home Increase protein, veggies, and get some form of exercise. Follow up in 3 months. Dentis: Dr. Rajan Fortune with Dr. Salas on [facility] documented in this encounter [facility] 08-26-2024 Telephone encount er Note 1 mg sent. The following approved medication requests have been transmitted electronically. Requested Prescriptions Signed Prescriptions Disp Refills semaglutide, weight loss, (WEGOVY) 1 mg/0.5 mL pen injector 4 Each 3 Sig: Inject 0.5 mL subcutaneously one time a week. Authorizing Provider: FRANKO ALEX APRN.CNP [facility] 08-26-2024 Miscellaneous Notes Formattin g of this note is different from the original. 1 mg sent. The following approved medication requests have been transmitted electronically. Requested Prescriptions Signed Prescriptions Disp Refills semaglutide, weight loss, (WEGOVY) 1 mg/0.5 mL pen injector 4 Each 3 Sig: Inject 0.5 mL subcutaneously one time a week. Authorizing Provider: FRANKO ALEX APRN.CNP Patient states she needs the 1.0 dose. She pays for this medication out of pocket. Prescription Refill Information The patient has been identified by name and date of : Yes Caregiver verified no other encounters exist for this prescription request: Yes Caregiver confirmed with patient/requestor that no other refills are due, in the near future, with this provider at this time: Yes The last office visit in the department: 06-13-24 Does the patient have a future office visit with this provider/department: Yes Requested Prescriptions Pending Prescriptions Disp Refills semaglutide, weight loss, (WEGOVY) 0.5 mg/0.5 mL pen injector Sig: Inject subcutaneously one time a week. Charley Zambrano August 26, 2024 8:23 AM documented in this encounter [facility] 08-26-2024 Telephone encount er Note Patient states she needs the 1.0 dose. She pays for this medication out of pocket. [facility] 08-26-2024 Telephone encount er Note Prescription Refill Information The patient has been identified by name and date of : Yes Caregiver verified no other encounters exist for this prescription request: Yes Caregiver confirmed with patient/requestor that no other refills are due, in the near future, with this provider at this time: Yes The last office visit in the department: 06-13-24 Does the patient have a future office visit with this provider/department: Yes Requested Prescriptions Pending Prescriptions Disp Refills semaglutide, weight loss, (WEGOVY) 0.5 mg/0.5 mL pen injector Sig: Inject subcutaneously one time a week. Charley Zambrano August 26, 2024 8:23 AM [facility] 07-29-2024 Telephone encount er Note Patient notified of Rx, verbalizes understanding of instructions. Pt also made her appt in September. Jim Sherman LPN [facility] 07-29-2024 Miscellaneous Notes Formattin g of this note might be different from the original. Patient notified of Rx, verbalizes understanding of instructions. Pt also made her appt in September. Jim Sherman LPN The following approved medication requests have been transmitted electronically. Requested Prescriptions Signed Prescriptions Disp Refills semaglutide, weight loss, (WEGOVY) 0.5 mg/0.5 mL pen injector 2 mL 0 Sig: Inject 0.5 mL subcutaneously one time a week. Authorizing Provider: DEBI ALEXANDER Patient will need a 3 month follow up in September for a weight check. If he tolerates increased dose, we can increase dosing again in 1 month. Please have him reach out to the office. Debi Alexander APRN.STAFFING ASSOCIATE [place] is calling Gretel Turner MD today to request the Wegovy medication is increased to the next dosage: Disp Refills Start End semaglutide, weight loss, (WEGOVY) 0.25 mg/0.5 mL pen injector 2 mL 0 06/23/2024 07/23/2024 Sig: Inject 0.5 mL subcutaneously one time a week. Sent to pharmacy as: semaglutide, weight loss, (WEGOVY) 0.25 mg/0.5 mL pen injector Class: Normal Route: SUBCUTANEOUS Order: [id number] E-Prescribing Status: Receipt confirmed by pharmacy (06/23/2024 2:31 PM EST) Prior authorization: Denied Patient is paying out of pocket. She has one left at this dosage, and will take tomorrow. Please send new prescription to [facility]. Please call the patient. Patient has been identified by name and birthdate. Duration of symptoms: N/A Person calling: self Call patient at: on cell [phone] (home) [phone] (cell) Was an appointment scheduled: No Closing statement: Results or non-symptom based questions: Thank you for calling [facility], your call will be returned within the next business day. Carla Nuñez Pss documented in this encounter [facility] 07-29-2024 Telephone encount er Note The following approved medication requests have been transmitted electronically. Requested Prescriptions Signed Prescriptions Disp Refills semaglutide, weight loss, (WEGOVY) 0.5 mg/0.5 mL pen injector 2 mL 0 Sig: Inject 0.5 mL subcutaneously one time a week. Authorizing Provider: DEBI ALEXANDER Patient will need a 3 month follow up in September for a weight check. If he tolerates increased dose, we can increase dosing again in 1 month. Please have him reach out to the office. Debi Alexander APRN.STAFFING ASSOCIATE [facility] 07-29-2024 Telephone encount er Note Milan is calling Gretel Turner MD today to request the Wegovy medication is increased to the next dosage: Disp Refills Start End semaglutide, weight loss, (WEGOVY) 0.25 mg/0.5 mL pen injector 2 mL 0 06/23/2024 07/23/2024 Sig: Inject 0.5 mL subcutaneously one time a week. Sent to pharmacy as: semaglutide, weight loss, (WEGOVY) 0.25 mg/0.5 mL pen injector Class: Normal Route: SUBCUTANEOUS Order: [id number] E-Prescribing Status: Receipt confirmed by pharmacy (06/23/2024 2:31 PM EST) Prior authorization: Denied Patient is paying out of pocket. She has one left at this dosage, and will take tomorrow. Please send new prescription to [facility]. Please call the patient. Patient has been identified by name and birthdate. Duration of symptoms: N/A Person calling: self Call patient at: on cell [phone] (home) [phone] (cell) Was an appointment scheduled: No Closing statement: Results or non-symptom based questions: Thank you for calling [facility], your call will be returned within the next business day. Carla Nuñez Pss [facility] 06-28-2024 Telephone encount er Note PA completed for Wegovy was denied medicare does not cover any weight loss medication. Patient was notified Josselyn Rivero MA [facility] 06-28-2024 Miscellaneous Notes Formattin g of this note might be different from the original. PA completed for Wegovy was denied medicare does not cover any weight loss medication. Patient was notified Josselyn Rivero MA documented in this encounter [facility] 06-23-2024 Telephone encount er Note The following approved medication requests have been transmitted electronically. Requested Prescriptions Signed Prescriptions Disp Refills semaglutide, weight loss, (WEGOVY) 0.25 mg/0.5 mL pen injector 2 mL 0 Sig: Inject 0.5 mL subcutaneously one time a week. Authorizing Provider: DEBI ALEXANDER APRN.CNP [facility] 06-23-2024 Miscellaneous Notes Formattin g of this note is different from the original. The following approved medication requests have been transmitted electronically. Requested Prescriptions Signed Prescriptions Disp Refills semaglutide, weight loss, (WEGOVY) 0.25 mg/0.5 mL pen injector 2 mL 0 Sig: Inject 0.5 mL subcutaneously one time a week. Authorizing Provider: DEBI ALEXANDER APRN.CNP Patient notified of results, verbalizes understanding of instructions. Pt would like the RX to go to [facility] LPN Can you please call the patient and let her know that I reviewed her lab results. Thyroid was normal. A1c was 5.4, no signs of diabetes. LDL cholesterol elevated but much improved. I would recommend working on lifestyle changes at home, be mindful of processed foods in the diet, increase lean protein, vegetables, get some form exercise. I know she was interested in trying Wegovy, please let me know if she wants me to send in a prescription to her pharmacy of choice. Debi Alexander APRN.PRASAD documented in this encounter [facility] 06-23-2024 Telephone encount er Note Patient notified of results, verbalizes understanding of instructions. Pt would like the RX to go to Miah Sherman LPN [facility] 06-23-2024 Telephone encount er Note Can you please call the patient and let her know that I reviewed her lab results. Thyroid was normal. A1c was 5.4, no signs of diabetes. LDL cholesterol elevated but much improved. I would recommend working on lifestyle changes at home, be mindful of processed foods in the diet, increase lean protein, vegetables, get some form exercise. I know she was interested in trying Wegovy, please let me know if she wants me to send in a prescription to her pharmacy of choice. Debi Alexanedr APRN.PRASAD [facility] 06-13-2024 Instructions Debi Alexander APRN.CNP - 06/13/2024 1:29 PM EST Get fasting labs completed Continue to eat a well balanced diet and get some form of exercise Try to limit alcohol to no more than 2 drinks per week. Follow up in 1 year or sooner pending test results. Progenex protein powder and 1st phorm protein bars G Garcia condiments Garlic Expressions (salad dressing) Health Promotion: - Eat healthy -- go to [employer]gov to get started - Have a yearly physical - Mammogram yearly after age 40 - Get at least 30 minutes of physical activity daily - Get at least 7 to 8 hours of sleep each night - Reach and maintain a healthy weight - Get help to quit or don't start smoking - Limit alcohol use to one drink or less - Do not use illegal drugs or misuse prescription drugs - Wear a helmet when riding a bike and wear protective gear for sports - Wear a seatbelt in cars and not text and drive - Wear sunscreen documented in this encounter [facility] 06-13-2024 History of Presen t illness Narrative Images from the original note were not included. Milan Alvarado is a 68 year old female here for a Medicare wellness visit. Medicare Health Risk Assessment General Health Very good Exercise: Minutes/Day 10 min Exercise: Days/Week 2 days Alcohol: Daily Use 4 or more times a week Alcohol: Drinks/Day 1 or 2 Alcohol: 6 or more drinks Never Feel off balance No Concerns: Teeth/Dentures No Concerns: Sexual function No Troubled by feelings No Frequency: Eating healthy diet Yes, daily ADLs requiring help No Safety precautions in home/vehicle yes Smoke, vape, chews tobacco No Difficulty hearing No Difficulty seeing No Current Providers Specialists: I have reviewed specialist-related care of the patient in the medical record. Medical/Family history review Reviewed and updated problem list, medical/surgical/family/social history, medications, and allergies. Opioid use review Opioid Medications (last 90 days) No data to display Depression Screening DEPRESSION SCREENING Ordered at: 06/13/24 1311 Based on score and interview, patient is: Not at risk for depression Screening tool discussed with patient, and I recommend: No further intervention at this time PHQ-2 Score: 0 PHQ-9 Score: 0 ANXIETY SCREENING Ordered at: 06/13/24 1311 Based on score and interview, patient is: Not at risk for anxiety Screening tool discussed with patient, and I recommend: No further intervention at this time KRISTA-2 Score: 0 KRISTA-7 Score: 0 Cognitive screening Mini Cog Score: 5 Cognitive screening reviewed and No further action needed (score 3-5). Functional Observation Was the patient's Timed Up & Go test unsteady or >= 12 seconds? No Advance Care Planning Patient did not wish or was not able to name a surrogate decision maker or provide an advance care plan Measurements Pulse 82 Resp 16 Ht 166 cm (5' 5.35) Wt 93.2 kg (205 lb 7.5 oz) SpO2 97% BMI 33.82 kg/m Vision Screening: Follows with optometry/ophthalmology Assessment/Plan Medicare annual wellness visit, subsequent (Z00.00) - Counseled on healthy diet and regular exercise - Fall avoidance information provided - Personalized prevention plan provided - Discussed need for and benefit of weight loss. BMI 33.82 kg/(m^2) This is a 68 year old female who presents today with: Patient presents with: Medicare Wellness Exam HISTORY OF PRESENT ILLNESS: Milan Alvarado is a 68 year old female. Patient presents with: Medicare Wellness Exam Here in the office for extensive exam. History of MVP, not currently following with cardiology or taking medication. Had echo completed in 2022. Asymptomatic, denies chest pain, palpitations, dizziness, or edema. The left ventricle is normal in size. Left ventricular systolic function is normal. EF = 57 5% (2D 4-ch.) Grade I left ventricular diastolic dysfunction. - The right ventricle is normal in size. Right ventricular systolic function is normal. - There are no significant valvular abnormalities. Working on losing weight. Trying to eat a well balanced diet. Eating low carb diet. Likes sweets. Would like to try Wegovy. Family history of diabetes. Staying active during the day. Has been doing at home exercise. Mammogram: March 2024 Colonoscopy: 2016, due in 10 years. Vaccine: Would like flu vaccine PAST MEDICAL HISTORY: PAST MEDICAL HISTORY Diagnosis Date Head injury, unspecified 2006 Head Injury Unspec, Closed head injury, 3 day stay in [facility]. Mitral valve prolapse Pneumothorax 2006 Rib fractures 2006 Right side Snoring PAST SURGICAL HISTORY Procedure Laterality Date APPENDECTOMY COLONOSCOPY FLX DX W/COLLJ SPEC WHEN PFRMD 12/03/2011 Colonoscopy repeat 5 years COLONOSCOPY FLX DX W/COLLJ SPEC WHEN PFRMD 04/03/2017 Colonoscopy HYSTERECTOMY HX 15 years ago-total hysterectomy KNEE ARTHROSCOPY Right 06/26/2017 Dr. Peterson, [facility]. Torn Lateral Medial Meniscus LIG/TRNSXJ FLP TUBE ABDL/VAG APPR UNI/BI 1996 OPEN REPAIR OF ROTATOR CUFF ACUTE 2003 Right PAST SURGICAL HISTORY OF ORIF left hand PAST SURGICAL HISTORY OF ORIF right ankle PAST SURGICAL HISTORY OF 10/15/12 bilatral foot surgery SALPINGECTOMY Right SEPTOPLASTY/SUBMUCOUS RESECJ W/WO CARTILAGE GRF TOTAL ABDOMINAL HYSTERECT W/WO RMVL TUBE OVARY 2001 ALLERGIES Dust Mites and Grass Pollen MEDICATIONS Current Outpatient Medications Medication Sig chol/gl/ser/RNA/phen/prg/hb150 (SHARPER FOCUS ORAL) Take by mouth once daily. multivitamin/iron/folic acid (CENTRUM WOMEN ORAL) Take by mouth once daily. No current facility-administered medications for this visit. FAMILY HISTORY Problem Relation Age of Onset Diabetes Brother Diabetes Mother Heart Brother MVP, SBE Social History Tobacco Use Smoking status: Former Current packs/day: 0.00 Types: Cigarettes Quit date: 07/06/1986 Years since quittin.9 Smokeless tobacco: Never Vaping Use Vaping status: Never Used Substance Use Topics Alcohol use: Yes Comment: occasional Drug use: No REVIEW OF SYSTEMS GENERAL: No weight loss, malaise or fevers/chills HEENT: Negative for frequent or significant headaches, No changes in hearing or vision. NECK: Negative for lumps, goiter, pain and significant neck swelling RESPIRATORY: Negative for cough, hemoptysis, wheezing, dyspnea or shortness of breath CARDIOVASCULAR: Negative for chest pain, leg swelling, orthopnea, or palpitations GI: No nausea, vomiting, or diarrhea/constipation. No hematochezia/melena. No heartburn or reflux symptoms. : No history of dysuria, frequency or incontinence MUSCULOSKELETAL: Negative for joint pain or swelling. SKIN: Negative for lesions, rash, and itching ENDOCRINE: Negative for cold or heat intolerance, polyuria, polydipsia and goiter NEURO: No history of headaches, syncope, paralysis, seizures or tremors MOOD: Negative for depression, anxiety, or suicidal ideation. EXAM: BP 142/80 Pulse 82 Resp 16 Ht 166 cm (5' 5.35) Wt 93.2 kg (205 lb 7.5 oz) SpO2 97% BMI 33.82 kg/m PHYSICAL EXAM: General Appearance: Well appearing, alert, in no acute distress, well-hydrated, well nourished. Skin: Skin color, texture, turgor normal, no suspicious rashes or lesions. Head: Normocephalic, no masses, lesions, tenderness or abnormalities. Eyes: Anicteric sclera. Extraocular movements are intact. Lungs: Lungs clear to auscultation. No wheezing, rhonchi, rales. Heart: RRR without murmur, gallop, or rubs. No ectopy. Extremities: No deformities, edema, skin discoloration, clubbing or cyanosis. Good capillary refill. Peripheral Pulses: Normal, Capillary refill <2secs, strong peripheral pulses, Pulses palpable. Neurologic: Gait normal. Sensation grossly intact. ASSESSMENT/PLAN: 1. Medicare annual wellness visit, initial - ICD9: V70.0, ICD10: Z00.00 (primary diagnosis) - Counseled on healthy diet and regular exercise - Discussed need and benefit for weight loss. BMI 33.82 kg/(m^2) - Patient counseled on and acknowledged vaccine benefits/risks/side effects; VIS provided: Influenza - Follow up for annual exam in one year 2. Mitral valve prolapse - ICD9: 424.0, ICD10: I34.1 - Stable - COMPREHENSIVE METABOLIC PANEL 3. Elevated glucose - ICD9: 790.29, ICD10: R73.09 - HEMOGLOBIN A1C 4. Hyperlipidemia, mixed - ICD9: 272.2, ICD10: E78.2 - Control undetermined, due for labs - Counseled on healthy diet and regular exercise - Discussed need for and benefit of weight loss. BMI 33.82 kg/(m^2) - LIPID PANEL BASIC 5. Class 1 obesity with body mass index (BMI) of 33.0 to 33.9 in adult, unspecified obesity type, unspecified whether serious comorbidity present - ICD9: 278.00, V85.33, ICD10: E66.811, Z68.33 Newly diagnosed - Get labs completed, will wait to order Wegovy until results reviewed. - Instructed to work on increasing lean protein, vegetables and get some form of exercise. - THYROID STIMULATING HORMONE - T4 FREE/FREE THYROXINE 6. Screening for depression - ICD9: V79.0, ICD10: Z13.31 - DEPRESSION SCREENING 7. Encounter for screening examination for other mental health and behavioral disorders - ICD9: V79.8, ICD10: Z13.39 - ANXIETY SCREENING 8. Encounter for immunization - ICD9: V03.89, ICD10: Z23 - VIS provided. - INFLUENZA VACCINE, PRSV FREE, AGE 65+ YR, HIGH DOSE, TRIVALENT (FLUZONE HIGH-DOSE) Follow-up in 1 year or sooner pending test results. Discussed treatment plan and patient voices understanding. Patient's questions answered appropriately. Medications and potential side effects were discussed and patient voices understanding. Debi Alexander APRN.PRASAD This note was partially generated using [employer] voice recognition system. Note was reviewed for accuracy. There may be minor misspellings or grammar miscues with [employer] voice recognition. documented in this encounter [facility] 06-13-2024 Note HNO ID: [id number] Author: DEBI ALEXANDER APRN.PRASAD Service: ? Author Type: Nurse Practitioner Type: Progress Notes Filed: 06/13/2024 15:57 Note Text: Milan Alvarado is a 68 year old female here for a Medicare wellness visit. Medicare Health Risk Assessment General Health Very good Exercise: Minutes/Day 10 min Exercise: Days/Week 2 days Alcohol: Daily Use 4 or more times a week Alcohol: Drinks/Day 1 or 2 Alcohol: 6 or more drinks Never Feel off balance No Concerns: Teeth/Dentures No Concerns: Sexual function No Troubled by feelings No Frequency: Eating healthy diet Yes, daily ADLs requiring help No Safety precautions in home/vehicle yes Smoke, vape, chews tobacco No Difficulty hearing No Difficulty seeing No Current Providers Specialists: I have reviewed specialist-related care of the patient in the medical record. Medical/Family history review Reviewed and updated problem list, medical/surgical/family/social history, medications, and allergies. Opioid use review Opioid Medications (last 90 days) No data to display Depression Screening DEPRESSION SCREENING Ordered at: 06/13/24 1311 Based on score and interview, patient is: Not at risk for depression Screening tool discussed with patient, and I recommend: No further intervention at this time PHQ-2 Score: 0 PHQ-9 Score: 0 ANXIETY SCREENING Ordered at: 06/13/24 1311 Based on score and interview, patient is: Not at risk for anxiety Screening tool discussed with patient, and I recommend: No further intervention at this time KRISTA-2 Score: 0 KRISTA-7 Score: 0 Cognitive screening Mini Cog Score: 5 Cognitive screening reviewed and No further action needed (score 3-5). Functional Observation Was the patient's Timed Up AND Go test unsteady or >= 12 seconds? No Advance Care Planning Patient did not wish or was not able to name a surrogate decision maker or provide an advance care plan Measurements Pulse 82 Resp 16 Ht 166 cm (5' 5.35) Wt 93.2 kg (205 lb 7.5 oz) SpO2 97% BMI 33.82 kg/m? Vision Screening: Follows with optometry/ophthalmology Assessment/Plan Medicare annual wellness visit, subsequent (Z00.00) - Counseled on healthy diet and regular exercise - Fall avoidance information provided - Personalized prevention plan provided - Discussed need for and benefit of weight loss. BMI 33.82 kg/(m2) This is a 68 year old female who presents today with: Patient presents with: Medicare Wellness Exam HISTORY OF PRESENT ILLNESS: Milan Alvarado is a 68 year old female. Patient presents with: Medicare Wellness Exam Here in the office for extensive exam. History of MVP, not currently following with cardiology or taking medication. Had echo completed in 2022. Asymptomatic, denies chest pain, palpitations, dizziness, or edema. The left ventricle is normal in size. Left ventricular systolic function is normal. EF = 57 ? 5% (2D 4-ch.) Grade I left ventricular diastolic dysfunction. - The right ventricle is normal in size. Right ventricular systolic function is normal. - There are no significant valvular abnormalities. Working on losing weight. Trying to eat a well balanced diet. Eating low carb diet. Likes sweets. Would like to try Wegovy. Family history of diabetes. Staying active during the day. Has been doing at home exercise. Mammogram: March 2024 Colonoscopy: 2016, due in 10 years. Vaccine: Would like flu vaccine PAST MEDICAL HISTORY: PAST MEDICAL HISTORY Diagnosis Date Head injury, unspecified 2006 Head Injury Unspec, Closed head injury, 3 day stay in [facility]. Mitral valve prolapse Pneumothorax 2006 Rib fractures 2006 Right side Snoring PAST SURGICAL HISTORY Procedure Laterality Date APPENDECTOMY COLONOSCOPY FLX DX W/COLLJ SPEC WHEN PFRMD 12/03/2011 Colonoscopy repeat 5 years COLONOSCOPY FLX DX W/COLLJ SPEC WHEN PFRMD 04/03/2017 Colonoscopy HYSTERECTOMY HX 15 years ago-total hysterectomy KNEE ARTHROSCOPY Right 06/26/2017 Dr. Peterson, [facility]. Torn Lateral Medial Meniscus LIG/TRNSXJ FLP TUBE ABDL/VAG APPR UNI/BI 1996 OPEN REPAIR OF ROTATOR CUFF ACUTE 2003 Right PAST SURGICAL HISTORY OF ORIF left hand PAST SURGICAL HISTORY OF ORIF right ankle PAST SURGICAL HISTORY OF 10/15/12 bilatral foot surgery SALPINGECTOMY Right SEPTOPLASTY/SUBMUCOUS RESECJ W/WO CARTILAGE GRF TOTAL ABDOMINAL HYSTERECT W/WO RMVL TUBE OVARY 2001 ALLERGIES Dust Mites and Grass Pollen MEDICATIONS Current Outpatient Medications Medication Sig chol/gl/ser/RNA/phen/prg/hb150 (SHARPER FOCUS ORAL) Take by mouth once daily. multivitamin/iron/folic acid (CENTRUM WOMEN ORAL) Take by mouth once daily. No current facility-administered medications for this visit. FAMILY HISTORY Problem Relation Age of Onset Diabetes Brother Diabetes Mother Heart Brother MVP, SBE Social History Tobacco Use Smoking status: Former Current packs/day: (more content not included)... [facility] 04-07-2024 Telephone encount er Note Pt notified of results below from Provider. Also notified pt she is overdue for Annual Wellness-Medicare. Asked pt to contact office to schedule. Saray Mcknight MA [facility] 04-07-2024 Miscellaneous Notes Formattin g of this note might be different from the original. Pt notified of results below from Provider. Also notified pt she is overdue for Annual Wellness-Medicare. Asked pt to contact office to schedule. Saray Mcknight MA Mammogram is normal; repeat in one year Gretel Turner MD Pt had outside Mammogram done through [facility]. This has been scanned into chart, under imaging tab. Please review results. Saray Mcknight MA documented in this encounter [facility] 04-07-2024 Telephone encount er Note Mammogram is normal; repeat in one year Gretel Turner MD [facility] 04-05-2024 Telephone encount er Note Pt had outside Mammogram done through [facility]. This has been scanned into chart, under imaging tab. Please review results. Saray Mcknight MA [facility] 03-31-2024 Telephone encount er Note [facility] scheduling calls to request order for mammogram be faxed to them per patient request to schedule. Faxed to [phone] per request. Chasidy Hernandez RN [facility] 03-31-2024 Miscellaneous Notes Formattin g of this note might be different from the original. [facility] scheduling calls to request order for mammogram be faxed to them per patient request to schedule. Faxed to [phone] per request. Chasidy Hernandez RN documented in this encounter [facility] 03-30-2024 Note Patient Outreach (IN TMMN) MILAN ALVARADO ([id number]) 1955 F Date Time Provider Department 03/30/24 GRETEL TURNER During your visit today, we recorded the following information about you: Allergies As of Date: 03/30/2024 Noted Allergy Reaction DUST MITES 06/19/2005 GRASS POLLEN 06/19/2005 Date Reviewed: 01/26/2023 Reviewed by: Jim Sherman LPN - Fully Assessed Visit Diagnosis:Encounter for screening mammogram for breast cancer [Z12.31] Order(s):KRISHNA SCREENING W ROBLES [[id number]] Order #: [id number] FUTURE Facility-Administered Medications as of 04/04/2024 - perflutren lipid microspheres 1.3 mL in NaCl (PF) 0.9% 10 mL injection (DEFINITY) - sodium chloride 0.9 % (flush) 10 mL (BD POSIFLUSH) Meds Comments as of 08/30/2020: Tylenol PRN in AM August 30, 2020 Marjorie Jones MA Problem List As Of Date 03/30/2024 Noted Resolved Mitral valve prolapse [I34.1] 02/24/2011 Benign neoplasm of rectum and anal canal [D12.8*12/03/2011 Internal hemorrhoids without mention of complic*12/03/2011 Special screening for malignant neoplasms, colo*12/03/2011 LBBB (left bundle branch block) [I44.7] 04/22/2016 Encounter Status:Closed by GEORGE HENDRICKS on 04/04/24 [facility] 02-25-2024 Note HNO ID: [id number] Author: GAMA WONG MA Service: ? Author Type: Alarm Adjuster Type: Progress Notes Filed: 02/25/2024 14:19 Note Text: POPULATION HEALTH NAVIGATION OUTREACH Action/FYI Patient is on [place] [facility] Workbench list for below and needs appointment to address: Depression Screening Anxiety Screening Hepatitis C Screening RSV Vaccine(1 - 1-dose 60+ series) Bone Density Screening Pneumococcal Vaccine: 65+(1 of 1 - PCV) Covid-19 Vaccine( season) Advance Directive Discussion Mammogram Screening Hemoglobin A1C (%) Date Value 03/03/2023 5.5 07/08/2021 5.9 Patient due for: Medicare Annual Wellness Visit Breast Cancer Screening Advance Directives Left message for patient to call back. Sent Brightpearl message. No HCC Reason for Outreach Care Gap/HCC or Scheduling Wellness Visits Care Gaps due: Medicare Annual Wellness Visit Breast Cancer Screening Advance Directives Patient Contacted: Unable or unnecessary to reach patient: Left message O' Doughty'shart message sent Navigation Signature: Gama Wong MA February 25, 2024 7:44 AM [facility] 02-25-2024 History of Presen t illness Narrative POPULATION HEALTH NAVIGATION OUTREACH Action/FYI Patient is on [facility] Workbench list for below and needs appointment to address: Depression Screening Anxiety Screening Hepatitis C Screening RSV Vaccine(1 - 1-dose 60+ series) Bone Density Screening Pneumococcal Vaccine: 65+(1 of 1 - PCV) Covid-19 Vaccine(2022- season) Advance Directive Discussion Mammogram Screening Hemoglobin A1C (%) Date Value 03/03/2023 5.5 07/08/2021 5.9 Patient due for: Medicare Annual Wellness Visit Breast Cancer Screening Advance Directives Left message for patient to call back. Sent Brightpearl message. No HCC Reason for Outreach Care Gap/HCC or Scheduling Wellness Visits Care Gaps due: Medicare Annual Wellness Visit Breast Cancer Screening Advance Directives Patient Contacted: Unable or unnecessary to reach patient: Left message M2G message sent Navigation Signature: Gama Wong MA February 25, 2024 7:44 AM documented in this encounter [facility] 02-25-2024 Note Patient Outreach (FIDEL TNAV) MILAN ALVARADO ([id number]) 1955 F Date Time Provider Department 02/25/24 GAMA WONG During your visit today, we recorded the following information about you: Gama Wong MA 02/25/2024 2:19 PM Signed POPULATION HEALTH NAVIGATION OUTREACH Action/FYI Patient is on [place] [facility] Workbench list for below and needs appointment to address: Depression Screening Anxiety Screening Hepatitis C Screening RSV Vaccine(1 - 1-dose 60+ series) Bone Density Screening Pneumococcal Vaccine: 65+(1 of 1 - PCV) Covid-19 Vaccine( - 2022- season) Advance Directive Discussion Mammogram Screening Hemoglobin A1C (%) Date Value 03/03/2023 5.5 07/08/2021 5.9 Patient due for: Medicare Annual Wellness Visit Breast Cancer Screening Advance Directives Left message for patient to call back. Sent Brightpearl message. No HCC Reason for Outreach Care Gap/HCC or Scheduling Wellness Visits Care Gaps due: Medicare Annual Wellness Visit Breast Cancer Screening Advance Directives Patient Contacted: Unable or unnecessary to reach patient: Left message [employer]oughty'shart message sent Navigation Signature: Gama Wong MA February 25, 2024 7:44 AM Allergies As of Date: 02/25/2024 Noted Allergy Reaction DUST MITES 06/19/2005 GRASS POLLEN 06/19/2005 Date Reviewed: 01/26/2023 Reviewed by: Jim Sherman LPN - Fully Assessed Reason for Visit: Population Health Navigation Outreach [3910] Cmt: Dorene Dawkins Willard Dooley [facility] Facility-Administered Medications as of 02/25/2024 - perflutren lipid microspheres 1.3 mL in NaCl (PF) 0.9% 10 mL injection (DEFINITY) - sodium chloride 0.9 % (flush) 10 mL (BD POSIFLUSH) Meds Comments as of 08/30/2020: Tylenol PRN in AM August 30, 2020 Marjorie Jones MA Problem List As Of Date 02/25/2024 Noted Resolved Mitral valve prolapse [I34.1] 02/24/2011 Benign neoplasm of rectum and anal canal [D12.8*12/03/2011 Internal hemorrhoids without mention of complic*12/03/2011 Special screening for malignant neoplasms, colo*12/03/2011 LBBB (left bundle branch block) [I44.7] 04/22/2016 Encounter Status:Closed by GAMA WONG on 02/25/24 [facility] 12-15-2023 Note HNO ID: [id number] Author: COTY HART MA Service: ? Author Type: Alarm Adjuster Type: Progress Notes Filed: 12/15/2023 15:17 Note Text: POPULATION HEALTH NAVIGATION OUTREACH Action/FYI Contacted patient to schedule [place] Annual Wellness Visit, care gaps and HCCs due. 1st attempt: No answer and unable to leave message 2nd attempt: My Chart message sent Reason for Outreach Care Gap/HCC or Scheduling Wellness Visits Care Gaps due: Medicare Annual Wellness Visit Patient Contacted: Unable or unnecessary to reach patient: Unable to leave message M2G message sent HCC related Navigation Signature: Coty Hart MA December 15, 2023 3:17 PM [facility] 12-15-2023 History of Presen t illness Narrative POPULATION HEALTH NAVIGATION OUTREACH Action/FYI Contacted patient to schedule [place] Annual Wellness Visit, care gaps and HCCs due. 1st attempt: No answer and unable to leave message 2nd attempt: My Chart message sent Reason for Outreach Care Gap/HCC or Scheduling Wellness Visits Care Gaps due: Medicare Annual Wellness Visit Patient Contacted: Unable or unnecessary to reach patient: Unable to leave message M2G message sent HCC related Navigation Signature: Coty Hart MA December 15, 2023 3:17 PM documented in this encounter [facility] 12-15-2023 Note Patient Outreach (NE TNAV) MILAN ALVARADO ([id number]) 1955 F Date Time Provider Department 12/15/23 COTY HART NETNAV During your visit today, we recorded the following information about you: Coty Hart MA 12/15/2023 3:17 PM Signed POPULATION HEALTH NAVIGATION OUTREACH Action/FYI Contacted patient to schedule [place] Annual Wellness Visit, care gaps and HCCs due. 1st attempt: No answer and unable to leave message 2nd attempt: My Chart message sent Reason for Outreach Care Gap/HCC or Scheduling Wellness Visits Care Gaps due: Medicare Annual Wellness Visit Patient Contacted: Unable or unnecessary to reach patient: Unable to leave message O' Doughty'shart message sent HCC related Navigation Signature: Coty Hart MA December 15, 2023 3:17 PM Allergies As of Date: 12/15/2023 Noted Allergy Reaction DUST MITES 06/19/2005 GRASS POLLEN 06/19/2005 Date Reviewed: 01/26/2023 Reviewed by: Jim Sherman LPN - Fully Assessed Reason for Visit: Population Health Navigation Outreach [3910] Cmt: [place] Annual Wellness Visit Facility-Administered Medications as of 12/15/2023 - perflutren lipid microspheres 1.3 mL in NaCl (PF) 0.9% 10 mL injection (DEFINITY) - sodium chloride 0.9 % (flush) 10 mL (BD POSIFLUSH) Meds Comments as of 08/30/2020: Tylenol PRN in AM August 30, 2020 Marjorie Jones MA Problem List As Of Date 12/15/2023 Noted Resolved Mitral valve prolapse [I34.1] 02/24/2011 Benign neoplasm of rectum and anal canal [D12.8*12/03/2011 Internal hemorrhoids without mention of complic*12/03/2011 Special screening for malignant neoplasms, colo*12/03/2011 LBBB (left bundle branch block) [I44.7] 04/22/2016 Encounter Status:Closed by COTY HART on 12/15/23 [facility] 02-11-2023 Miscellaneous Notes Formattin g of this note might be different from the original. Phoned pt and gave provider's message below with verbalized understanding. Please let the patient know that his echocardiogram is normal. Mitral valve is normal. Franko Alex APRN.CNP documented in this encounter [facility] 01-26-2023 Instructions Debi Alexander APRN.CNP - 01/26/2023 1:04 PM EDT Get fasting labs completed, no food 10-12 hours prior. May have black coffee and water. Schedule appointments for Mammogram,bone density, and echo. Continue to eat a well balanced diet and stay active. Follow up in 1 year or sooner pending test results. BONE MINERAL DENSITY PATIENT INSTRUCTIONS Bone mineral density testing measures the amount of calcium in certain parts of your bones. This information determines how strong your bones are. The test is used to detect osteoporosis, a disease in which the bone's mineral content and density are low, increasing a person's risk of fractures. The lumbar spine (lower back) and the hip are the skeletal sites usually examined. For the test, remember that: 1. You cannot take this test if you are . 2. Eat a normal diet on the day of the test. 3. Take your medications as you normally would. 4. DO NOT take calcium supplements (such as Tums) for 24 hours before the test. 5. On the day of the test, leave valuables (jewelry or credit cards) at home. 6. The test should be performed prior to oral, rectal or IV contrast studies, or at least 7 days after any of these studies. For the test, you may be asked to wear a hospital gown. You will lie on your back, on a padded table, in a comfortable position. Generally, you can resume your usual activities immediately. documented in this encounter [facility] 01-26-2023 History of Presen t illness Narrative Milan Alvarado is a 67 year old female here for a Medicare Initial Annual Wellness Visit Health Risk Assessment In general, health is: Very good Concerns with balance:Not at all Concerns with teeth or dentures:Not at all Concerns with sexual function:Not at all [place] anxious, stressed, angry, irritable, lonely, isolated, or had thoughts of hurting themself: Not at all Has little interest or pleasure in doing things: Not at all Bothered by feeling down, depressed, or hopeless: Not at all Needs help with grocery shopping, cooking, housework, bathing, grooming, dressing, eating, sitting or standing, walking, using the toilet, handling finances, taking medications, using the telephone, or driving: No Following safety precautions in the home environment and vehicle: removed throw rugs from floors, installed grab bars in the bathroom, handrails in stairwells, having adequate lighting, wearing seatbelt at all times?: No Smokes cigarettes, vapes, or chew tobacco: No Eats healthy foods including fruits, vegetables, whole grains, and fiber-rich foods: More than half the days Number of days per week engages in exercise: 3 days Average alcohol consumption: 4 or more times a week, small amount of whiskey daily. Current Providers Specialists: I have reviewed specialist-related care of the patient in the medical record. Medical/Family history review Reviewed and updated problem list, medical/surgical/family/social history, medications, and allergies. Opioid use review Patient is not currently using opioids. Depression screening Depression Screening PHQ-2 Score 10/20/2017 0 Depression screening tool completed and reviewed. Based on score and interview, patient is not at risk for depression. Screening tool discussed with patient, and I recommended no further intervention at this time. Cognitive screening Mini Cog Score: Score: 3 Cognitive screening reviewed and no further action needed (score 3-5) Functional Observation Was the patient's timed Up & Go test unsteady or ? 12 seconds? No Advance Care Planning End of Life planning discussed, including patient's advanced directive wishes: No Measurements BP 132/88 Pulse 78 Resp 63 Ht 5' 6.929 (1.70m) Wt 208 lb (94.3kg) SpO2 98% BMI 32.65 kg/(m^2). Visual acuity (required for Welcome to Medicare): follows with optometry/ophthalmology Hearing Evaluation: within normal limits Assessment/Plan - Counseled on healthy diet and regular exercise - Discussed need for and benefit of weight loss. BMI 32.65 kg/(m^2) - Fall avoidance - Mammogram recommended and ordered This is a 67 year old female who presents today with: Patient presents with: Medicare Wellness Exam HISTORY OF PRESENT ILLNESS: Milan Alvarado is a 67 year old female. Patient presents with: Medicare Wellness Exam Here in the office for extensive exam. History of MVP, asymptomatic. Has not had an echo in some time for maintenance. 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 PAST MEDICAL HISTORY: PAST MEDICAL HISTORY Diagnosis Date Head injury, unspecified 2006 Head Injury Unspec, Closed head injury, 3 day stay in [facility]. Mitral valve prolapse Pneumothorax 2006 Rib fractures 2006 Right side Snoring PAST SURGICAL HISTORY Procedure Laterality Date APPENDECTOMY COLONOSCOPY FLX DX W/COLLJ SPEC WHEN PFRMD 12/03/2011 Colonoscopy repeat 5 years COLONOSCOPY FLX DX W/COLLJ SPEC WHEN PFRMD 04/03/2017 Colonoscopy HYSTERECTOMY HX 15 years ago-total hysterectomy KNEE ARTHROSCOPY Right 06/26/2017 Dr. Peterson, [facility]. Torn Lateral Medial Meniscus LIG/TRNSXJ FLP TUBE ABDL/VAG APPR UNI/BI 1996 OPEN REPAIR OF ROTATOR CUFF ACUTE 2004 Right PAST SURGICAL HISTORY OF ORIF left hand PAST SURGICAL HISTORY OF ORIF right ankle PAST SURGICAL HISTORY OF 10/15/12 bilatral foot surgery SALPINGECTOMY Right SEPTOPLASTY/SUBMUCOUS RESECJ W/WO CARTILAGE GRF TOTAL ABDOMINAL HYSTERECT W/WO RMVL TUBE OVARY 2001 ALLERGIES Dust Mites and Grass Pollen MEDICATIONS No current outpatient medications on file. No current facility-administered medications for this visit. FAMILY HISTORY Problem Relation Age of Onset Diabetes Brother Diabetes Mother Heart Brother MVP, SBE Social History Tobacco Use Smoking status: Former Types: Cigarettes Quit date: 07/06/1986 Years since quittin.5 Smokeless tobacco: Never Vaping Use Vaping Use: Never used Substance Use Topics Alcohol use: Yes Comment: occasional Drug use: No REVIEW OF SYSTEMS GENERAL: No weight loss, malaise or fevers/chills HEENT: Negative for frequent or significant headaches, No changes in hearing or vision. NECK: Negative for lumps, goiter, pain and significant neck swelling RESPIRATORY: Negative for cough, hemoptysis, wheezing, dyspnea or shortness of breath CARDIOVASCULAR: Negative for chest pain, leg swelling, orthopnea, or palpitations GI: No nausea, vomiting, or diarrhea/constipation. No hematochezia/melena. No heartburn or reflux symptoms. : No history of dysuria, frequency or incontinence MUSCULOSKELETAL: Negative for joint pain or swelling. SKIN: Negative for lesions, rash, and itching ENDOCRINE: Negative for cold or heat intolerance, polyuria, polydipsia and goiter NEURO: No history of headaches, syncope, paralysis, seizures or tremors MOOD: Negative for depression, anxiety, or suicidal ideation. EXAM: BP 132/88 Pulse 78 Resp (!) 63 Ht 170 cm (5' 6.93) Wt 94.3 kg (208 lb) SpO2 98% BMI 32.65 kg/m PHYSICAL EXAM: General Appearance: Well appearing, alert, in no acute distress, well-hydrated, well nourished. Skin: Skin color, texture, turgor normal, no suspicious rashes or lesions. Head: Normocephalic, no masses, lesions, tenderness or abnormalities. Eyes: Anicteric sclera. Extraocular movements are intact. Lungs: Lungs clear to auscultation. No wheezing, rhonchi, rales.. Heart: Positive findings: murmur: 2/6 low pitched soft murmur ULSB . Extremities: No deformities, edema, skin discoloration, clubbing or cyanosis. Good capillary refill. Peripheral Pulses: Normal, Capillary refill <2secs, strong peripheral pulses, Pulses palpable. ASSESSMENT/PLAN: 1. Medicare annual wellness visit, initial - ICD9: V70.0, ICD10: Z00.00 (primary diagnosis) - Counseled on healthy diet and regular exercise - Calcium intake with supplements or by diet of 1000 mg/day for under 50, 5879-8555 mg/day for 50+ - Discussed need and benefit for weight loss. BMI 32.65 kg/(m^2) - Mammogram ordered - exam recommended once yearly - Depression screening tool completed and reviewed with patient. Based on score and interview, patient is not at risk for depression and recommended no further intervention at this time. - Follow up for annual exam in one year - COMP METABOLIC PANEL 2. Mitral valve prolapse - ICD9: 424.0, ICD10: I34.1 - Get Echo completed for MVP maintenance. - ECHO - PERFLUTREN LIPID MICROSPHERES 1.1 MG/ML INJECTION IN NS 10 ML - SODIUM CHLORIDE 0.9 % (FLUSH) INJECTION SYRINGE 3. Asymptomatic menopause - ICD9: V49.81, ICD10: Z78.0 - DXA-AXIAL SKELETON 4. Elevated glucose - ICD9: 790.29, ICD10: R73.09 - HGB A1C 5. Encounter for screening mammogram for malignant neoplasm of breast - ICD9: V76.12, ICD10: Z12.31 - KRISHNA SCREENING W ROBLES 6. Screening cholesterol level - ICD9: V77.91, ICD10: Z13.220 - LIPID PANEL BASIC Follow-up in 1 year or sooner pending test results. Discussed treatment plan and patient voices understanding. Patient's questions answered appropriately. Medications and potential side effects were discussed and patient voices understanding. Debi Alexander APRN.STAFFING ASSOCIATE This note was partially generated using [employer] voice recognition system. Note was reviewed for accuracy. There may be minor misspellings or grammar miscues with [employer] voice recognition. documented in this encounter [facility] Evaluation note Diagnosis Encounter for screening mammogram for breast cancer [facility] Diagnosis Medicare annual wellness visit, initial- Primary Routine general medical examination at a [facility] Mitral valve prolapse Mitral valve disorders Asymptomatic menopause Elevated glucose Other abnormal glucose Encounter for screening mammogram for malignant neoplasm of breast Other screening mammogram Screening cholesterol level Screening for lipoid disorders documented [facility] this [facility] noteNo assessment information availableWProtestant Hospital Work Phone: Evaluation note* Diagnosis Encounter for screening mammogram for breast cancer [facility]* Diagnosis Medicare annual wellness visit, initial- Primary Routine general medical examination at a [facility] facility Mitral valve prolapse Mitral valve disorders Elevated glucose Other abnormal glucose Hyperlipidemia, mixed Mixed hyperlipidemia Class 1 obesity with body mass index (BMI) of 33.0 to 33.9 in adult, unspecified obesity type, unspecified whether serious comorbidity present Screening for depression Encounter for screening examination for other mental health and behavioral disorders Encounter for immunization Need for other specified prophylactic vaccination against single bacterial disease [facility] Diagnosis Elevated glucose- Primary Other abnormal glucose Class 1 obesity with body mass index (BMI) of 33.0 to 33.9 in adult, unspecified obesity type, unspecified whether serious comorbidity present [facility]* Diagnosis Class 1 obesity with body mass index (BMI) of 33.0 to 33.9 in adult, unspecified obesity type, unspecified whether serious comorbidity present- Primary Elevated glucose Other abnormal glucose documented in this encounter [facility] note* Diagnosis Class 1 obesity with body mass index (BMI) of 33.0 to 33.9 in adult, unspecified obesity type, unspecified whether serious comorbidity present Elevated glucose Other abnormal glucose documented in this encounter [facility] note* Diagnosis Class 1 obesity with body mass index (BMI) of 31.0 to 31.9 in adult, unspecified obesity type, unspecified whether serious comorbidity present- Primary documented in [facility] (narrative)* Diagnostic Procedure Only (Routine) - Pending Review Specialty Diagnoses / Procedures Referred By Eli bal Referred To Contact [facility] Diagnoses Encounter for screening mammogram for breast cancer Procedures KRISHNA SCREENING SCREENING MAMMOGRAPHY BI 2-VIEW BREAST INC CAD Gretel Turner MD [address] [place] [address] [facility] [address] [place] [address] Referral ID Status Reason Start Date Expiration Date Visits Requested Visits Authorized [id number] Pending Review Auto-Generat ed Referral 07/16/2022 08/15/2023 1 1 [facility] (narrative)* Outpatient Procedure (Routine) - Authorized Specialty Diagnoses / Procedures Referred By Eli bal [facility] Diagnoses Mitral valve prolapse Procedures ECHO ECHO TTHRC R-T 2D W/WOM-MODE COMPL SPEC&COLR Deib Dhaliwal, [employer]PRASAD [address] [place] [address] [facility] [place] [address] [place] [address] Referral ID Status Reason Start Date Expiration Date Visits Requested Visits Authorized [id number] Authorized Auto-Generat ed Referral 01/26/2023 01/26/2024 1 1 * Diagnostic Procedure Only (Routine) - Pending Review Specialty Diagnoses / Procedures Referred By Contac t Referred To Contact [facility] Diagnoses Encounter for screening mammogram for malignant neoplasm of breast Procedures KRISHNA SCREENING W ROBLES SCREENING DIGITAL BREAST TOMOSYNTHESIS BI SCREENING MAMMOGRAPHY BI 2-VIEW BREAST INC Debi Gamboa APRN.CNP [address] [place] [address] [facility] [address] [place] [address] Referral ID Status Reason Start Date Expiration Date Visits Requested Visits Authorized [id number] Pending Review Auto-Generat ed Referral 01/26/2023 02/25/2024 1 1 [facility] (narrative)* Diagnostic Procedure Only (Routine) - New Request Specialty Diagnoses / Procedures Referred By Eli bal Referred To Contact [facility] Diagnoses Encounter for screening mammogram for breast cancer Procedures KRISHNA SCREENING W ROBLES SCREENING DIGITAL BREAST TOMOSYNTHESIS BI SCREENING MAMMOGRAPHY BI 2-VIEW BREAST INC Gretel Kumar MD [address] [place] [address] [facility] [address] [place] [address] Referral ID Status Reason Start Date Expiration Date Visits Requested Visits Authorized [id number] New Request Auto-Generat ed Referral 03/30/2024 04/29/2025 1 1 [facility] (narrative)No reason for referral information availableWProtestant Hospital Work Phone: Chief Complaint and Reason for Visit Chief Complaint SCREENING Advance Directives No Advanced Directives Records Found Advance Directive Response Recorded Date/ Time Living Will No December 21, 2016 12:00pm Power of [employer] Sergeant No December 21 12:00pm Summary Purpose Family History No Family History Records FoundNo Family History Records Found Additional Source Comments Source Comments (unrecognize d section and content) In the event this informatio n is protected by the Federal Confidentiality of Alcohol and Drug Abuse Patient Records regulations: The Federal rules restrict any use of the information to criminally investigate or prosecute any alcohol or drug abuse patient.[facility] the event this information is protected by the Federal Confidentiality of Alcohol and Drug Abuse Patient Records regulations: The Federal rules restrict any use of the information to criminally investigate or prosecute any alcohol or drug abuse patient.[facility] Hospital[facility] the event this information is protected by the Federal Confidentiality of Alcohol and Drug Abuse Patient Records regulations: The Federal rules restrict any use of the information to criminally investigate or prosecute any alcohol or drug abuse patient.[facility] Hospital[facility] the event this information is protected by the Federal Confidentiality of Alcohol and Drug Abuse Patient Records regulations: The Federal rules restrict any use of the information to criminally investigate or prosecute any alcohol or drug abuse patient.[facility] Hospital[facility] the event this information is protected by the Federal Confidentiality of Alcohol and Drug Abuse Patient Records regulations: The Federal rules restrict any use of the information to criminally investigate or prosecute any alcohol or drug abuse patient.[facility] Hospital[facility] the event this information is protected by the Federal Confidentiality of Alcohol and Drug Abuse Patient Records regulations: The Federal rules restrict any use of the information to criminally investigate or prosecute any alcohol or drug abuse patient.[facility] HospitalIn the event this information is protected by the Federal Confidentiality of Alcohol and Drug Abuse Patient Records regulations: The Federal rules restrict any use of the information to criminally investigate or prosecute any alcohol or drug abuse patient.[facility] Hospital[facility] the event this information is protected by the Federal Confidentiality of Alcohol and Drug Abuse Patient Records regulations: The Federal rules restrict any use of the information to criminally investigate or prosecute any alcohol or drug abuse patient.[facility] Hospital[facility] the event this information is protected by the Federal Confidentiality of Alcohol and Drug Abuse Patient Records regulations: The Federal rules restrict any use of the information to criminally investigate or prosecute any alcohol or drug abuse patient.[facility] Hospital[facility] the event this information is protected by the Federal Confidentiality of Alcohol and Drug Abuse Patient Records regulations: The Federal rules restrict any use of the information to criminally investigate or prosecute any alcohol or drug abuse patient.[facility] HospitalIn the event this information is protected by the Federal Confidentiality of Alcohol and Drug Abuse Patient Records regulations: The Federal rules restrict any use of the information to criminally investigate or prosecute any alcohol or drug abuse patient.[facility] HospitalIn the event this information is protected by the Federal Confidentiality of Alcohol and Drug Abuse Patient Records regulations: The Federal rules restrict any use of the information to criminally investigate or prosecute any alcohol or drug abuse patient.[facility] Hospital[facility] the event this information is protected by the Federal Confidentiality of Alcohol and Drug Abuse Patient Records regulations: The Federal rules restrict any use of the information to criminally investigate or prosecute any alcohol or drug abuse patient.[facility] HospitalIn the event this information is protected by the Federal Confidentiality of Alcohol and Drug Abuse Patient Records regulations: The Federal rules restrict any use of the information to criminally investigate or prosecute any alcohol or drug abuse patient.[facility] Care Teams (unrecognized sec tion and content) Environmental Auditor Relationship Specialty Start Date End Date Gretel Turner MD [address], [place] [id number] PCP - General Family Medicine 10/11/12 Environmental Auditor Relationship Specialty Start Date End Date Gretel Turner MD [address] [place], [place] [id number] PCP - General Family Medicine 10/11/12 Environmental Auditor Relationship Specialty Start Date End Date Gretel Turner MD [address] [place], [place] [id number] PCP - General Family Medicine 10/11/12 Team Status: Active Member Role Status Dates Dr. Gretel Turner MD Family Provider Active Dr. Gretel Turner MD Primary Care Provider Active Team Status: Inactive Member Role Status Dates Dr. Gretel Turner MD Primary Care Pr ovider, Attending Provider, Referring Provider Active Environmental Auditor Relationship Specialty Start Date End Date Gretel Turner MD [address] [place] [address] PCP - General Family Medicine 10/11/12 Environmental Auditor Relationship Specialty Start Date End Date Gretel Turner MD [address] [place] [address] PCP - General Family Medicine 10/11/12 Environmental Auditor Relationship Specialty Start Date End Date Gretel Turner MD [address] [place] [address] PCP - General Family Medicine 10/11/12 Environmental Auditor Relationship Specialty Start Date End Date Gretel Turner MD [address] [place] [address] PCP - General Family Medicine 10/11/12 Environmental Auditor Relationship Specialty Start Date End Date Gretel Turner MD [address] [place] [address] PCP - General Family Medicine 10/11/12 Environmental Auditor Relationship Specialty Start Date End Date Gretel Turner MD [address] [place] [address] PCP - General Family Medicine 10/11/12 Debi Alexander APRN.CNP [address] [place] [address] [employer] [facility] 06/19/24 Environmental Auditor Relationship Specialty Start Date End Date Gretel Turner MD [address] [place] [address] PCP - General Family Medicine 10/11/12 Debi Alexander, BENEFITS CLERK.STAFFING ASSOCIATE [address] [place] [address] [employer] [facility] 06/19/24 Environmental Auditor Relationship Specialty Start Date End Date Gretel Turner MD [address] [place] [address] PCP - General Family Medicine 10/11/12 Debi Alexander, BENEFITS CLERK.STAFFING ASSOCIATE [address] [place] [address] [employer] 06/19/24 Franko Alex BENEFITS CLERK.STAFFING ASSOCIATE [address] [place] [address] [facility] 06/28/24 Environmental Auditor Relationship Specialty Start Date End Date Gretel Turner MD [address] [place] [address] PCP - General Family Medicine 10/11/12 Debi Alexander BENEFITS CLERK.STAFFING ASSOCIATE [address] [place] [address] [facility] 06/19/24 Franko Alex APRN.STAFFING ASSOCIATE [address] [place] [address] [facility] 06/28/24 Team Status: Active Member Role/Relationship Status Dates Dr. Gretel Turner MD Family Provider Active Dr. Gretel Turner MD Primary Care Provider Active Team Status: Inactive Member Role/Relationship Status Dates Dr. Gretel Turner MD Primary Care Provider Active Start: March 02, 2025 End: March 02, 2025 Dr. Jerel GRANADOS MD Attending Provider Active Start: March 02, 2025 End: March 02, 2025 Dr. Jerel GRANADOS MD Referring Provider Active Start: March 02, 2025 End: March 02, 2025 Reason for Visit (unrecogniz ed section and content) Reason Comments Medicare Wellness Exam Reason Comments Results Reason Onset Date Comments Population Health Navigation Outreach 12/15/2023 [place] Annual Wellness Visit Reason Onset Date Comments Population Health Navigation Outreach [facility]2024 [place] [facility] Reason Comments Results Mammogram Reason Comments Medicare Wellness Exam Reason Comments Results Labs Reason Comments Insurance Authorization Wegovy Reason Comments Medication Question Wegovy Reason Onset Date Comments Refill Request 08/26/2024 Reason Comments Follow Up 3 month follow up Goals (unrecognized section and content) Goals may be documented in a n alternate sectionGoals may be documented in an alternate section INFORMATION SOURCE (unrecogn ized section and content) DATE CREATED AUTHOR 10/01/2024 [facility] DATE CREATED AUTHOR AUTHOR'S OJ RESTREPO 03/26/2025 [facility] FOR RECORDS PERTAINING TO PATIENTS WHO ARE OR HAVE BEEN ENROLLED IN A CHEMICAL DEPENDENCY/SUBSTANCEABUSE PROGRAM, SOME INFORMATION MAY BE OMITTED. This clinical summary was aggregated from multiple sources. Caution should be exercised in using it in the provision of clinical care. This summary normalizes information from multiple sources, and as a consequence, information in this document may materially change the coding, format and clinical context of patient data. In addition, data may be omitted in some cases. CLINICAL DECISIONS SHOULD BE BASED ON THE PRIMARY CLINICAL RECORDS. [employer] provides no warranty or guarantee of the accuracy or completeness of information in this document.
--- NOTE | 2025-04-03 02:50 | RAD_ITS ---
PROCEDURE: CHEST 1 VIEW (PORTABLE) 04/03/2025 REASON FOR EXAM: CHEST PAIN TECHNIQUE: Frontal view of the chest. COMPARISON: None. FINDINGS: Chronic deformities of the posterior arches of the right 6, 7th and 8th rib secondary to healed fractures. The lungs are expanded. There is no demonstrated parenchymal abnormality. There is no demonstrated pleural abnormality. Normal heart and pericardium. Normal mediastinum and radha. Normal visualized pulmonary arteries. Normal visualized aortic arch and descending thoracic aorta. Normal visualized thoracic spine. Normal remaining visualized ribs, clavicles, and shoulders. There is no demonstrated abnormality of the visualized soft tissue structures of the upper abdomen. RAD/Chest 1 View (Portable) IMPRESSION: Chronic deformities of the right ribs. No evidence for acute abnormality. Reading [facility]
[2025-04-03 02:52] VITALS: BP 165/83; PULSE 86
[2025-04-03] MEDS: Nitroglycerin SL (ED/IMG/CATH) 0.4 MG TABLET SL (02:52)
[2025-04-03 02:55] LABS: Hematocrit 40.2 % (37-47); Hemoglobin 13.7 g/dL (12.0-15.0); Immature Granulocytes Count 0.040 X10^3/uL (0.0-0.0); Mean Corp Hgb Conc 34.1 g/dL (32-36); Mean Corpuscular Volume 88.9 fL (81-99); Mean Platelet Vol. 9.8 fl (6.2-12.0); NRBC Flagged by Analyzer 0 % (0-5); Platelet Count 266 K/mm3 (150-450); RBC Distribution Width CV 13.2 % (11.6-14.6); RBC Distribution Width SD 43.2 fl (35.1-43.9); Red Blood Count 4.52 M/mm3 (4.2-5.4); White Blood Count 11.6 K/mm3 (4.4-11.0)
[2025-04-03 03:00] VITALS: BP 113/73; PULSE 84; RESP 18; O2SAT 97
[2025-04-03 03:07] LABS: D-Dimer Quantitative (DVT/PE) 0.34 FEU/ug/m (0.27-0.49)
[2025-04-03 03:21] LABS: Anion Gap 13 (5-15); BUN 11 mg/dL (4-19); BUN/Creat Ratio 14.5 RATIO (10-20); Calcium,Total 9.7 mg/dL (7.6-11.0); Carbon Dioxide 24.4 mmol/L (21.0-32.0); Chloride 99 mmol/L (98-108); Estimated Creatinine Clearance 68.36 ml/min (50-250); Glucose 115 mg/dL (70-99); Potassium 4.2 mmol/L (3.3-5.1); Troponin T High Sensitivity 9 ng/L (<=14)
[2025-04-03 04:00] VITALS: BP 143/73; PULSE 87; RESP 16; O2SAT 100
[2025-04-03 05:00] VITALS: BP 126/73; PULSE 74; RESP 16; O2SAT 96
[2025-04-03 05:19] LABS: Troponin T High Sens 2 HR 10 ng/L (<=14)
[2025-04-03 05:29] VITALS: BP 118/76; PULSE 79; RESP 18; TEMP 36.6; O2SAT 97
== END 2025-04-03 05:34 | disposition home or self-care (01) ==
PROVIDERS: Emergency Provider Emergency Medicine; PCP Nurse Practitioner Family; Visit Provider Emergency Medicine
DX: R07.9 Chest pain, unspecified (principal); R03.0 Elevated blood-pressure reading, without diagnosis of hypertension
CPT/HCPCS: 71045; 80048; 84484; 85025; 85379; 93005; 99283; A4216

== ENCOUNTER → 2025-07-04 | Outpatient (CLI) | payer MEDICARE, SELFPAY ==
[2025-07-04 12:59] LABS: AST(SGOT) 27 U/L (<=31); Alanine Aminotransfer ALT/SGPT 25 U/L (<=34); Albumin, Serum 4.3 g/dL (3.4-4.8); Alkaline Phosphatase 90 U/L (35-104); Anion Gap 14 (7-18); BUN 16 mg/dL (4-19); BUN/Creat Ratio 22.7 RATIO (10-20); Calcium,Total 9.4 mg/dL (7.6-11.0); Carbon Dioxide 24.3 mmol/L (20.0-29.0); Chloride 102 mmol/L (96-106); Cholesterol 226 mg/dL (<=200); Globulin 2.7 g/dL (2.2-4.2); Glucose 91 mg/dL (70-99); Low Density Lipoprotein Calc. 136 mg/dL; Potassium 4.5 mmol/L (3.5-5.1); Triglycerides 91 mg/dL; Very Low Density Lipoprotein 18 mg/dL (5-40); cholesterol:hdl ratio screen 3.06
== END | disposition home or self-care (01) ==
LOC: VSLAB 09:16
PROVIDERS: PCP Nurse Practitioner Family; Referring Provider Nurse Practitioner Family; Visit Provider Nurse Practitioner Family
DX: Z13.1 Encounter for screening for diabetes mellitus (principal); E78.5 Hyperlipidemia, unspecified
CPT/HCPCS: 36415; 80053; 80061; 83036